=== PATIENT | female | born 1940 ===

== ENCOUNTER 2017-07-25 08:24 | Inpatient (IN) | payer MEDICARE, MEDICAID ==
[2017-07-25 08:41] VITALS: BMI 28.5
--- NOTE | 2017-07-25 09:33 | ED PDOC ---
Arrival/HPI - General Chief Complaint: Abdominal Pain Time Seen by Provider: 07/25/17 08:40 Historian: Patient - History of Present Illness Narrative History of Present Illness (Text): 07/25/17 08:40 A 77 year old female, whose past medical history includes triple bypass surgery (10 years ago), hypertension, and hyperlipedemia, presents to the emergency department for abdominal pain, which began around 03:00 this morning. The patient states the pain is in her epigastric region and is intermittent. The patient admits to eating pizza last night and thinks that may be the cause of her pain. She also notes that she had 3 normal bowel movements since last night. She states she has taken nexium in the past, but does not take it everyday. The patient denies any fever, nausea, vomiting, diarrhea, or any other complaints at this time. Time/Duration: 24 hours (03:00) Symptom Onset: Sudden Symptom Course: Intermittent Quality: Cramping Activities at Onset: Eating Context: Home Past Medical History - Provider Review Nursing Documentation Reviewed: Yes - Infectious Disease Hx of Infectious Diseases: None - Cardiac Hx Cardiac Disorders: Yes Hx Hypertension: Yes Other/Comment: triple bypass - Pulmonary Hx Respiratory Disorders: No - Neurological Hx Neurological Disorder: Yes Hx Dizziness: Yes - HEENT Hx HEENT Disorder: Yes Other/Comment: b/l eye sx - Renal Hx Renal Disorder: No - Endocrine/Metabolic Hx Endocrine Disorders: No - Hematological/Oncological Hx Blood Disorders: No - Integumentary Hx Dermatological Disorder: No - Musculoskeletal/Rheumatological Hx Musculoskeletal Disorders: No - Gastrointestinal Hx Gastrointestinal Disorders: No - Genitourinary/Gynecological Hx Genitourinary Disorders: No - Psychiatric Hx Psychophysiologic Disorder: Yes Hx Anxiety: Yes Hx Panic Disorder: Yes ("once in a while") Hx Substance Use: No - Surgical History Other/Comment: triple bypass. b/l carpal tunnel sx - Anesthesia Hx Anesthesia: Yes Hx Anesthesia Reactions: No Family/Social History - Physician Review Nursing Documentation Reviewed: Yes Family/Social History: No Known Family HX Smoking Status: Never Smoked Hx Alcohol Use: No Hx Substance Use: No Allergies/Home Meds Allergies/Adverse Reactions: Allergies amlodipine [From Norvasc] Adverse Reaction (Verified 07/25/17 08:46) NAUSEA Home Medications: Home Meds Medication Instructions Recorded Confirmed ALPRAZolam [Xanax] 1 tab PO BID PRN 07/25/17 07/25/17 Aspirin [Aspirin EC] 1 tab PO DAILY 07/25/17 07/25/17 Atorvastatin [Lipitor] 40 mg PO DAILY 07/25/17 07/25/17 Carvedilol [Coreg] 25 mg PO DAILY 07/25/17 07/25/17 Esomeprazole Magnesium [Nexium] 1 tab PO DAILY 07/25/17 07/25/17 Fenofibrate Nanocrystallized 1 tab PO DAILY 07/25/17 07/25/17 [Fenofibrate] Meclizine [Meclizine*] 1 tab PO BID PRN 07/25/17 07/25/17 Valsartan/Hydrochlorothiazide 1 tab PO DAILY 07/25/17 07/25/17 [Valsartan-Hctz 320-12.5 mg Tab] diltiaZEM [Cardizem] 240 mg PO DAILY 07/25/17 07/25/17 Review of Systems - Physician Review All systems were reviewed & negative as marked: Yes - Review of Systems Constitutional: absent: Fevers Gastrointestinal: Abdominal Pain. absent: Diarrhea, Nausea, Vomiting Physical Exam Vital Signs Reviewed: Yes Vital Signs Temp Pulse Resp BP Pulse Ox 07/25/17 08:39 97.6 F 54 L 17 157/77 H 100 Temperature: Afebrile Blood Pressure: Hypertensive Pulse: Bradycardic Respiratory Rate: Normal Appearance: Positive for: Well-Appearing, Non-Toxic, Comfortable Pain Distress: None Mental Status: Positive for: Alert and Oriented X 3 - Systems Exam Head: Present: Atraumatic, Normocephalic Pupils: Present: PERRL Extroacular Muscles: Present: EOMI Conjunctiva: Present: Normal Ears: Present: Normal, NORMAL TM, Erythema, Normal Canal, TM Bulging, Fluid, TM Perf, Other Mouth: Present: Moist Mucous Membranes Neck: Present: Normal Range of Motion Respiratory/Chest: Present: Clear to Auscultation, Good Air Exchange. No: Respiratory Distress, Accessory Muscle Use Cardiovascular: Present: Regular Rate and Rhythm, Normal S1, S2. No: Murmurs Abdomen: Present: Tenderness (mild epigastric tenderness), Normal Bowel Sounds. No: Distention, Peritoneal Signs Back: Present: Normal Inspection Upper Extremity: Present: Normal Inspection. No: Cyanosis, Edema Lower Extremity: Present: Normal Inspection. No: Edema Neurological: Present: GCS=15, CN II-XII Intact, Speech Normal Skin: Present: Warm, Dry, Normal Color. No: Rashes Psychiatric: Present: Alert, Oriented x 3, Normal Insight, Normal Concentration Medical Decision Making ED Course and Treatment: 07/25/17 09:00 Impression: A 77 year old female with abdominal pain. Differential Diagnosis included but are not limited to: pancreatitis vs. gastritis vs. reflux Plan: -- Labs -- Pepcid -- Reassess and disposition Progress Notes: Abdominal US Accession No. : [id number] Patient Name / ID : VLAD ANDRADE / [id number]: Abdominal pain. Rule out cholecystitis. . IMPRESSION: Limited study due to body habitus and bowel gas. Echogenic focus within the gallbladder lumen which could represent echogenic sludge versus non calcified intraluminal gallstone. There are bilateral renal cysts as detailed above. CT abdomen and pelvis with IV contrast Accession No. : [id number] Patient Name / ID : VLAD ANDRADE / [id number] Exam Date : 07/25/2017 13:49:59 ( Approved ) Study Comment : Sex / Age : F / 77Y PROCEDURE: CT scan abdomen and pelvis dated 07/25/2017 HISTORY: Abdominal pain. Rule out cholecystitis IMPRESSION: Distended gallbladder. No obvious intraluminal gallbladder calculi seen however there does appear to be a vague density along the posterior margin of the gallbladder wall that could represent localize sludge. Clinical correlation recommended. Medium to large sized ventral wall hernia upper abdomen containing fat and a loop of small bowel however short segment of mid transverse colon cannot be completely excluded. There are several distended air-filled loops of small bowel present cm in greatest diameter. Possibility of a partial obstruction cannot be excluded. There is however stool and air seen throughout the large bowel. Multiple bilateral renal cysts. 07/25/17 15:[address] ordered to confirm cholecystitis. CT results noted above. Case discussed with the supervisor residential Shannon who evaluated the patient and discussed the case with Dr. Elias. IVF were given. IV antibiotics ordered by resident. Case discussed with Dr. Lancaster who will accept the patient to her service with Dr. Elias surgery on consult. - Lab Interpretations Lab Results: 07/25/17 09:00 07/25/17 10:15 Lab Results 07/25/17 10:15: Sodium 138, Potassium 3.6, Chloride 105, Carbon Dioxide 25, Anion Gap 12, BUN 18, Creatinine 1.0, Est GFR ( Amer) > 60, Est GFR (Non- Af Amer) 53, Random Glucose 128 H, Calcium 9.9, Total Bilirubin 1.7 H, AST 117 H , ALT 69 H, Alkaline Phosphatase 43, Total Protein 7.3, Albumin 4.0, Globulin 3.3, Albumin/Globulin Ratio 1.2, Lipase 492 H 07/25/17 09:00: WBC 7.0, RBC 3.90, Hgb 12.1, Hct 36.5, MCV 93.6, MCH 31.0, MCHC 33.2, RDW 12.9, Plt Count 168, MPV 11.5 H, Gran % 79.6 H, Lymph % (Auto) 13.8 L , [place] % (Auto) 4.1, Eos % (Auto) 2.4, Baso % (Auto) 0.1, Gran # 5.60, Lymph # 1.0 L, [place] # 0.3, Eos # 0.2, Baso # 0.01 I have reviewed the lab results: Yes Interpretation: Abnormal lab values (lipase and lfts elevated) - RAD Interpretation Radiology Orders: 07/25/17 10:34 ABDOMEN COMPLETE [US] Stat 07/25/17 12:53 ABD & PELVIS IV CONTRAST ONLY [CT] Stat 07/25/17 15:08 BILIARY SCAN (HIDA) [NM] Stat - Medication Orders Current Medication Orders: Sodium Chloride (Sodium Chloride 0.9%) 1,000 mls @ 100 mls/hr IV .Q10H SIVA Metronidazole (Flagyl) 500 mg in 100 mls @ 100 mls/hr IVPB Q8 SIVA PRN Reason: Protocol Ceftriaxone Sodium (Rocephin 1 Gram Ivpb) 1 gm in 100 mls @ 100 mls/hr IVPB DAILY SIVA PRN Reason: Protocol Morphine Sulfate (Morphine) 4 mg IVP Q4H PRN PRN Reason: Pain, moderate (4-7) Ondansetron HCl (Zofran Inj) 4 mg IVP Q4H PRN PRN Reason: Nausea/Vomiting Pantoprazole Sodium (Protonix Inj) 40 mg IVP DAILY [facility] Discontinued Medications Famotidine (Pepcid) 20 mg IVP STAT STA Stop: 07/25/17 08:47 Last Admin: 07/25/17 09:17 Dose: 20 mg IVP Administration Document 07/25/17 09:17 MR (Rec: 07/25/17 09:17 [id number]) Charges for Administration # of IVP Administrations 1 Morphine Sulfate (Morphine) 4 mg IVP STAT STA Stop: 07/25/17 10:27 Last Admin: 07/25/17 10:43 Dose: 4 mg MAR Pain Assessment Document 07/25/17 10:43 MR (Rec: 07/25/17 10:44 MR [id number]) Pain Reassessment Is this a pain reassessment? Yes Sleep Is patient sleeping during reassessment? No Presence of Pain Presence of Pain Yes Pain Scale Used Pain Scale Used Numeric Location Left, Right or Bilateral Left Upper or Lower Upper Pain Location Body Site Abdomen Description Description Constant Intensity of Pain at present 8 Pain Behavior Restlessness Facial Grimacing Alleviating Factors/Management Medication Techniques Alleviating Factors Medication IVP Administration Document 07/25/17 10:43 MR (Rec: 07/25/17 10:44 MR [id number]) Charges for Administration # of IVP Administrations 1 - Scribe Statement The provider has reviewed the documentation as recorded by the Monster Morton Provider Scribe Attestation: All medical record entries made by the Scribe were at my direction and personally dictated by me. I have reviewed the chart and agree that the record accurately reflects my personal performance of the history, physical exam, medical decision making, and the department course for this patient. I have also personally directed, reviewed, and agree with the discharge instructions and disposition. Disposition/Present on Arrival - Present on Arrival Any Indicators Present on Arrival: No History of DVT/PE: No History of Uncontrolled Diabetes: No Urinary Catheter: No History of Decub. Ulcer: No History Surgical Site Infection Following: None - Disposition Have Diagnosis and Disposition been Completed?: Yes Diagnosis: Cholecystitis, Pancreatitis Disposition Time: 15:32 Patient Plan: Admission Condition: FAIR Referrals: Nikki Massey MD [Primary Care Provider] - Follow up with primary Forms: [employer] (Turkmen)
[2017-07-25 09:41] LABS: BASO # 0.01 K/mm3 (0.0-2.0); BASO % 0.1 % (0.0-3.0); EOS # 0.2 (0.0-0.7); EOS % 2.4 % (1.5-5.0); GRAN # 5.6 (1.4-6.5); GRAN % 79.6 % (50.0-68.0); HEMATOCRIT 36.5 % (36.0-48.0); LYMPH % 13.8 % (22.0-35.0); MEAN CELL VOLUME 93.6 fl (80.0-105.0); MEAN CORPUSCULAR HGB CONC 33.2 g/dl (31.0-37.0); MEAN PLATELET VOLUME 11.5 fl (7.0-11.0); MONO # 0.3 (0.1-0.6); MONO % 4.1 % (1.0-6.0); RED CELL DISTRIBUTION WIDTH 12.9 % (11.5-14.5)
[2017-07-25] MEDS ORDERED: Morphine 4 mg/ml ISec IVP STA (10:26)
[2017-07-25 10:31] LABS: ALB/GLOB RATIO 1.2 (1.1-1.8); ALKALINE PHOSPHATASE 43 U/L (38-126); ALT/SGPT 69 U/L (7-56); AST/SGOT 117 U/L (14-36); BILIRUBIN,TOTAL 1.7 mg/dL (0.2-1.3); BLOOD UREA NITROGEN 18 mg/dL (7-21); CALCIUM 9.9 mg/dL (8.4-10.5); CARBON DIOXIDE 25 mmol/L (21-33); CHLORIDE 105 mmol/L (98-107); GFR AFRICAN-AMERICAN > 60; GLUCOSE,RANDOM 128 mg/dL (70-110); LIPASE 492 U/L (23-300); POTASSIUM 3.6 mmol/L (3.6-5.0); SODIUM 138 mmol/L (132-148); TOTAL PROTEIN 7.3 g/dL (5.8-8.3)
[2017-07-25] MEDS ORDERED: Iohexol 240 (50 ml) ONE (10:34)
--- NOTE | 2017-07-25 12:45 | US ---
HISTORY: Abdominal pain. Rule out cholecystitis. . COMPARISON: None. TECHNIQUE: Sonographic evaluation of the abdomen. FINDINGS: LIVER: Liver exhibits normal size measuring approximately 15.3 cm in CC dimension. Liver demonstrates smooth contour though increased echotexture consistent with fatty infiltration however other infiltrative hepatocellular disease process not excluded. . No obvious hepatic masses or collections. GALLBLADDER: Non shadowing echogenic focus within the dependent portion of the gallbladder could represent echogenic sludge or possibly noncalcified gallstone COMMON BILE DUCT: Measures 3.9 mm. No stones. No dilatation. PANCREAS: Pancreas poorly seen due to body habitus and bowel gas RIGHT KIDNEY: Measures approximately 10.4 x 5.1 x 5.3cm. Normal echogenicity. No calculus, mass, or hydronephrosis. . There are small cysts seen in the midpole right kidney measuring 1.7 x 2.2 x 1.7 cm and another in the lower pole measuring 2.0 x 1.5 x 1.8 cm. LEFT KIDNEY: Measures approximately 10.3 x 4.7 x 5.2cm. Normal echogenicity. No calculus, mass, or hydronephrosis. There are least 4 small cysts present 1 in the upper pole measuring 1.1 cm greatest dimension another in mid/ lower pole region measuring 1.4 cm in greatest dimension another in the midpole measuring 1.6 cm in greatest dimension and the last in the lower pole measuring approximately 1.2 cm SPLEEN: Normal in size (measuring approximately 10.3 x 3.7 x 3.9) and contour. No mass. AORTA: Not visualized due to body habitus and bowel gas IVC: Not visualized due to body habitus and bowel gas OTHER FINDINGS: None. IMPRESSION: Limited study due to body habitus and bowel gas. Echogenic focus within the gallbladder lumen which could represent echogenic sludge versus non calcified intraluminal gallstone. There are bilateral renal cysts as detailed above.
[2017-07-25] MEDS ORDERED: Iohexol 350 MG/100 ML VIAL ONE (13:25)
--- NOTE | 2017-07-25 14:37 | CT ---
PROCEDURE: CT scan abdomen and pelvis dated 07/25/2017 HISTORY: Abdominal pain. Rule out cholecystitis COMPARISON: Correlation made with abdominal ultrasound obtained earlier same day TECHNIQUE: Contiguous axial images of the abdomen and pelvis. Oral contrast was administered. No IV contrast given. Coronal and Sagittal reformats generated. Radiation dose: Total exam DLP = 616.66 mGy-cm. This CT exam was performed using one or more of the following dose reduction techniques: Automated exposure control, adjustment of the mA and/or kV according to patient size, and/or use of iterative reconstruction technique. FINDINGS: LOWER THORAX: Minor bibasilar atelectasis left greater than right. No evidence of basilar pneumothorax. Moderate size hiatal hernia with wall thickening of the distal esophagus likely due to protrusion of gastric mucosa. Esophagitis or other intrinsic/invasive wall lesion cannot be excluded. LIVER: Unremarkable. No gross lesion or ductal dilatation. GALLBLADDER AND BILE DUCTS: Gallbladder is moderately distended No evidence of intraluminal gallbladder calcification. There is an area of increased density along the posterior wall of the gallbladder that could represent localized hyperdense sludge PANCREAS: The pancreas appears slightly atrophic. No obvious pancreatic mass or collection. . SPLEEN: Spleen upper limits of normal in size measuring nearly 12 cm and at AP dimension. No splenic mass or collection ADRENALS: . No adrenal lesions seen. KIDNEYS AND URETERS: Kidneys demonstrate symmetric nephrograms. No evidence of nephrolithiasis or hydronephrosis. Multiple varying sized bilateral low-attenuation foci both kidneys consistent with renal cysts. BLADDER: Urinary bladder is physiologically distended. No evidence of intraluminal urinary bladder calculi. REPRODUCTIVE: Peripheral uterine calcifications likely vascular in origin. APPENDIX: The appendix is not seen with complete certainty however no obvious inflammatory changes at in the right lower quadrant of the abdomen. BOWEL: Evaluation of the bowel is limited due to the lack of oral contrast material. Stomach is incompletely distended which presumably accounts for thick-walled appearance. Visualized loops of small bowel exhibit normal contour and caliber. No evidence of acute mechanical small bowel obstruction. Stool and air seen throughout the colon. No obvious abnormal mural wall thickening. There is a fat containing medium to large sized ventral wall hernia mid upper abdomen that contains fat and a loop of bowel possibly either small bowel or segment of transverse colon however. There are multiple on mildly distended air-filled loops of small bowel also seen measuring up to 3.3 mm in diameter. Rule out partial on SBO. PERITONEUM: There is a mid upper abdomen medium/ large hiatal hernia bold containing fat and what appears to represent a loop of bowel (questionable loop of small bowel and/or smooth short segment of the transverse colon). . Small fat containing right inguinal hernia. LYMPH NODES: Unremarkable. No enlarged lymph nodes. VASCULATURE: Unremarkable. No aortic aneurysm. BONES: Multilevel degenerative spondylosis of the lower thoracic and lumbar spine. Chronic anterior wedge deformity of the anterior superior corner L1 segment. OTHER FINDINGS: None. IMPRESSION: Distended gallbladder. No obvious intraluminal gallbladder calculi seen however there does appear to be a vague density along the posterior margin of the gallbladder wall that could represent localize sludge. Clinical correlation recommended. Medium to large sized ventral wall hernia upper abdomen containing fat and a loop of small bowel however short segment of mid transverse colon cannot be completely excluded. There are several distended air-filled loops of small bowel present cm in greatest diameter. Possibility of a partial obstruction cannot be excluded. There is however stool and air seen throughout the large bowel. Multiple bilateral renal cysts.
--- NOTE | 2017-07-25 15:13 | CP.PCM.CON ---
History of Present Illness - History of Present Illness History of Present Illness: Surgery Consult note. Dr. Elias 77yo F with PMHx of HTN, Panic Attacks, and HLD here for evaluation of abdominal pain. Patient states that she woke up from sleep due to severe, sharp RUQ abdominal pain. Abdominal pain started at 3AM this morning, reports eating a slice of pizza about 2 hours prior. She denies any nausea, vomiting, or diarrhea. No fevers or chills. States that she has had normal bowel movements. Has been passing flatus, with last BM this morning, non bloody, non melanotic, no change in stool characteristics. Denies similar complaints in the past. No sick contacts. No CP/SOB. She does not want to have surgery. PMD: Dr. Nikki Massey PMHx: HTN, Panic disorder, HLD PSHx: Cataracts, CABG, Left carpal tunnel release Family Hx: Denies Social Hx: Denies tobacco, denies ETOH, denies illicit drugs. She is visiting her daughter for the holidays. She normally lives with her granddaughter in [facility] [facility]. Allergy: Amlodipine Review of Systems - Review of Systems All systems: reviewed and no additional remarkable complaints except - Constitutional Constitutional: absent: Anorexia, Chills, Fever, Headache - Cardiovascular Cardiovascular: absent: Chest Pain, Dyspnea - Respiratory Respiratory: absent: Cough, Dyspnea - Gastrointestinal Gastrointestinal: Abdominal Pain, Bloating. absent: Constipation, Diarrhea, Hematemesis, Hematochezia, Melena, Nausea, Vomiting - Genitourinary Genitourinary: absent: Dysuria - Neurological Neurological: absent: Headaches - Psychiatric Psychiatric: absent: Anxiety Past Patient History - Infectious Disease Hx of Infectious Diseases: None - Past Social History Smoking Status: Never Smoked - CARDIAC Hx Cardiac Disorders: Yes Hx Hypertension: Yes Other/Comment: triple bypass - PULMONARY Hx Respiratory Disorders: No - NEUROLOGICAL Hx Neurological Disorder: Yes Hx Dizziness: Yes - HEENT Hx HEENT Problems: Yes Other/Comment: b/l eye sx - RENAL Hx Chronic Kidney Disease: No - ENDOCRINE/METABOLIC Hx Endocrine Disorders: No - HEMATOLOGICAL/ONCOLOGICAL Hx Blood Disorders: No - INTEGUMENTARY Hx Dermatological Problems: No - MUSCULOSKELETAL/RHEUMATOLOGICAL Hx Musculoskeletal Disorders: No - GASTROINTESTINAL Hx Gastrointestinal Disorders: No - GENITOURINARY/GYNECOLOGICAL Hx Genitourinary Disorders: No - PSYCHIATRIC Hx Psychophysiologic Disorder: Yes Hx Anxiety: Yes Hx Panic Symptoms: Yes ("once in a while") Hx Substance Use: No - SURGICAL HISTORY Other/Comment: triple bypass. b/l carpal tunnel sx - ANESTHESIA Hx Anesthesia: Yes Hx Anesthesia Reactions: No Meds Allergies/Adverse Reactions: Allergies Allergy/AdvReac Type Severity Reaction Status Date / Time amlodipine [From [facility]] AdvReac NAUSEA Verified 07/25/17 08:46 - Medications Medications: Current Medications Sodium Chloride (Sodium Chloride 0.9%) 1,000 mls @ 100 mls/hr IV .Q10H SIVA Physical Exam - Constitutional Appears: Well, No Acute Distress - Head Exam Head Exam: ATRAUMATIC, NORMAL INSPECTION, NORMOCEPHALIC - Eye Exam Eye Exam: EOMI, Normal appearance - ENT Exam ENT Exam: Mucous Membranes Moist, Normal Exam - Respiratory Exam Respiratory Exam: NORMAL BREATHING PATTERN. absent: Accessory Muscle Use, Chest Wall Tenderness, Respiratory Distress - Cardiovascular Exam Cardiovascular Exam: RRR, +S1, +S2. absent: JVD - GI/Abdominal Exam GI & Abdominal Exam: Soft. absent: Distended, Firm, Guarding, Rebound, Rigid Additional comments: mild RUQ tenderness. No Lopez's sign. No Rebound tenderness, no guarding. No peritoneal signs. Soft, Non-distended. - Extremities Exam Extremities exam: Positive for: normal inspection. Negative for: calf tenderness - Neurological Exam Neurological exam: Alert, Oriented x3 - Psychiatric Exam Psychiatric exam: Normal Affect, Normal Mood - Skin Skin Exam: Dry, Intact, Normal Color, Warm Results - Vital Signs Recent Vital Signs: Last Vital Signs Temp 97.6 F 07/25/17 08:39 Pulse 54 L 07/25/17 08:39 Resp 17 07/25/17 08:39 BP 157/77 H 07/25/17 08:39 Pulse Ox 100 07/25/17 08:39 - Labs Result Diagrams: 07/25/17 09:00 07/25/17 10:15 Labs: Laboratory Results - last 24 hr 07/25/17 07/25/17 09:00 10:15 WBC 7.0 RBC 3.90 Hgb 12.1 Hct 36.5 MCV 93.6 MCH 31.0 MCHC 33.2 RDW 12.9 Plt Count 168 MPV 11.5 H Gran % 79.6 H Lymph % (Auto) 13.8 L [place] % (Auto) 4.1 Eos % (Auto) 2.4 Baso % (Auto) 0.1 Gran # 5.60 Lymph # 1.0 L [place] # 0.3 Eos # 0.2 Baso # 0.01 Sodium 138 Potassium 3.6 Chloride 105 Carbon Dioxide 25 Anion Gap 12 BUN 18 Creatinine 1.0 Est GFR ( Amer) > 60 Est GFR (Non-Af Amer) 53 Random Glucose 128 H Calcium 9.9 Total Bilirubin 1.7 H AST 117 H ALT 69 H Alkaline Phosphatase 43 Total Protein 7.3 Albumin 4.0 Globulin 3.3 Albumin/Globulin Ratio 1.2 Lipase 492 H Assessment & Plan - Assessment and Plan (Free Text) Assessment: 77yo F with biliary colic vs. cholecystitis - No leukocytosis, afebrile - VSS - Mildly elevated transaminases - f/u AM labs - IVF - IV abx - Pain management - Clears - Zofran prn, PPI - f/u HIDA, pending Further recs as per Dr. Curt Ortega PGY1 surgery pager: [phone]
[2017-07-25] MEDS ORDERED: Morphine 4 mg/ml ISec IVP PRN (15:31)
[2017-07-25] MEDS: Sodium Chloride 0.9% 1,000 ML IV SCH (16:05)
[2017-07-25] MEDS: cefTRIAXone 1 gm 1 GM/100 ML BAG IVPB SCH (16:06)
[2017-07-25] MEDS ORDERED: Pneumococcal 23-Valent Vaccine IM ONE (17:14)
[2017-07-25] MEDS ORDERED: Influenza Vaccine 60 mcg/0.5 mL SYR (4YR UP) IM ONE (17:14)
[2017-07-25] MEDS: diltiaZEM 240 mg/24 Hours CD Cap PO SCH (22:14)
[2017-07-25] MEDS: metroNIDAZOLE IV 500 mg/100 ml 500 MG/100 ML BAG IVPB SCH (22:16)
--- NOTE | 2017-07-25 22:44 | HP ---
HISTORY OF PRESENT ILLNESS: The patient is a 77-year-old, who came to emergency room because of abdominal pain. The patient states that she woke up this morning with severe abdominal pain more so on the right upper quadrant area. Pain was so severe that it woke her up around 3 o'clock this morning. Did not have nausea or vomiting. She admit eating slice earlier that night. No history of fever or chills. Does have nausea. No rectal bleeding. No hemoptysis. No hematemesis. No fever or chills. PAST MEDICAL HISTORY: Significant for hypertension, hyperlipidemia and panic attack. SURGICAL HISTORY: Significant for open heart surgery many, many years ago, left carpal tunnel syndrome and cataract surgery. SOCIAL HISTORY: Denies smoking, drinking or alcohol use. ALLERGIES: SHE IS ALLERGIC TO AMLODIPINE. MEDICATIONS AT HOME: She is on diltiazem 240 mg daily, valsartan 320 mg daily, meclizine one tablet twice a day, fenofibrate one tablet daily, Protonix 20 mg daily, Coreg 25 mg daily, Lipitor 20 mg daily, aspirin 81 mg, Xanax 0.25 mg b.i.d. p.r.n. REVIEW OF SYSTEMS: Right upper quadrant pain. PHYSICAL EXAMINATION: GENERAL: Awake, alert, oriented, communicative. VITAL SIGNS: She is afebrile, pulse 72, respirations 18 and blood pressure 147/63. LUNGS: Bilateral fair airflow. No rhonchi or crackle. HEART: S1 and S2 audible. ABDOMEN: Soft, but has right upper quadrant palpable discomfort. NEUROLOGIC: The patient is awake and alert, oriented and communicate. LABORATORY EXAM: WBC 7.0, hemoglobin 12, hematocrit 36 and platelets 168. Chemistry; sodium 138, potassium 3.6, chloride 105, CO2 of 25, BUN 18, creatinine 1.0, blood sugar 128, total bilirubin 1.7, AST 117, ALT 69, lipase 492. She has CT scan of the abdomen and pelvis that shows distended gallbladder. No obvious intraluminal gallbladder calculi; however, there is vague density along the posterior margin of the gallbladder wall probably sludge. Abdominal ultrasound is inconclusive. ASSESSMENT: 1. Acute cholecystitis. 2. Coronary artery disease. 3. Hypertension. 4. Hyperlipidemia. PLAN: We will keep patient n.p.o. HIDA scan has been requested. We will continue on IV fluid. She is on Rocephin and metronidazole. I will continue that. Surgical consult with Dr. Elias has been requested. I will give her Zofran. I will follow this patient in the morning. Shaq Lancaster MD
[2017-07-26] MEDS: metroNIDAZOLE IV 500 mg/100 ml 500 MG/100 ML BAG IVPB SCH ×3 (06:14→21:52)
[2017-07-26 06:54] LABS: EOS # 0.1 (0.0-0.7); EOS % 0.7 % (1.5-5.0); GRAN # 7.42 (1.4-6.5); GRAN % 85.8 % (50.0-68.0); HEMATOCRIT 30.8 % (36.0-48.0); LYMPH # 0.6 (1.2-3.4); LYMPH % 7.2 % (22.0-35.0); MEAN CELL VOLUME 92.2 fl (80.0-105.0); MEAN CORPUSCULAR HEMOGLOBIN 30.5 pg (25.0-35.0); MEAN CORPUSCULAR HGB CONC 33.1 g/dl (31.0-37.0); MEAN PLATELET VOLUME 10.6 fl (7.0-11.0); MONO # 0.5 (0.1-0.6); MONO % 6.3 % (1.0-6.0); RED CELL DISTRIBUTION WIDTH 13.3 % (11.5-14.5); WHITE BLOOD COUNT 8.6 10^3/ul (4.5-11.0)
[2017-07-26 07:10] LABS: ALB/GLOB RATIO 1.1 (1.1-1.8); BILIRUBIN,DIRECT 2.9 mg/dL (0.0-0.4); BILIRUBIN,TOTAL 3.3 mg/dL (0.2-1.3); CALCIUM 9.2 mg/dL (8.4-10.5); MAGNESIUM 1.6 mg/dL (1.7-2.2); PHOSPHOROUS 2.8 mg/dL (2.5-4.5); POTASSIUM 3.5 mmol/L (3.6-5.0); TOTAL PROTEIN 6.5 g/dL (5.8-8.3)
[2017-07-26] MEDS ORDERED: Magnesium Sulfate 1 gm in D5W 1 GM/100 ML BAG IVPB ONE (09:35)
[2017-07-26] MEDS ORDERED: Potassium Chloride 40 mEq/30 ml LIQ UD PO ONE (10:12)
[2017-07-26] MEDS: cefTRIAXone 1 gm 1 GM/100 ML BAG IVPB SCH (10:13)
--- NOTE | 2017-07-26 10:27 | CP.PCM.PN ---
Subjective - Date & Time of Evaluation Date of Evaluation: 07/26/17 Time of Evaluation: 10:25 - Subjective Subjective: Surgery PT s&e. NAEON. Pain controlled. Denies F/C/N/V/D/CP/SOB. OOB. + void. Objective - Vital Signs/Intake and Output Vital Signs (last 24 hours): Temp Pulse Resp BP Pulse Ox 98.7 F 80 20 127/60 95 07/26/17 08:27 07/26/17 10:13 07/26/17 08:27 07/26/17 10:13 07/26/17 08:27 Intake and Output: 07/26/17 07/26/17 06:59 18:59 Intake Total 120 Balance 120 - Medications Medications: Current Medications Alprazolam (Xanax) 1 mg PO BID PRN; Protocol PRN Reason: Anxiety Stop: 08/01/17 19:03 Carvedilol (Coreg) 25 mg PO BID [facility] Last Admin: 07/26/17 10:13 Dose: 25 mg Diltiazem HCl (Cardizem Cd) 240 mg PO HS [facility] Last Admin: 07/25/17 22:14 Dose: 240 mg Sodium Chloride (Sodium Chloride 0.9%) 1,000 mls @ 100 mls/hr IV .Q10H [facility] Last Admin: 07/25/17 16:05 Dose: 100 mls/hr Metronidazole (Flagyl) 500 mg in 100 mls @ 100 mls/hr IVPB Q8 [facility] PRN Reason: Protocol Last Admin: 07/26/17 06:14 Dose: 100 mls/hr Ceftriaxone Sodium (Rocephin 1 Gram Ivpb) 1 gm in 100 mls @ 100 mls/hr IVPB DAILY [facility] PRN Reason: Protocol Last Admin: 07/26/17 10:13 Dose: 100 mls/hr Magnesium Sulfate/Dextrose (Magnesium Sulfate 1 Gm/100 Ml D5w) 1 gm in 100 mls @ 100 mls/hr IVPB ONCE ONE Stop: 07/26/17 10:34 Last Admin: 07/26/17 10:20 Dose: 100 mls/hr Morphine Sulfate (Morphine) 4 mg IVP Q4H PRN PRN Reason: Pain, moderate (4-7) Ondansetron HCl (Zofran Inj) 4 mg IVP Q4H PRN PRN Reason: Nausea/Vomiting Pantoprazole Sodium (Protonix Inj) 40 mg IVP DAILY [facility] Last Admin: 07/26/17 10:13 Dose: 40 mg - Labs Labs: 07/26/17 06:30 07/26/17 06:30 - Constitutional Appears: No Acute Distress - Head Exam Head Exam: ATRAUMATIC, NORMAL INSPECTION, NORMOCEPHALIC - Eye Exam Eye Exam: EOMI, Normal appearance, PERRL Pupil Exam: NORMAL ACCOMODATION, PERRL - ENT Exam ENT Exam: Mucous Membranes Moist, Normal Exam - Neck Exam Neck Exam: Full ROM, Normal Inspection. absent: Lymphadenopathy - Respiratory Exam Respiratory Exam: Clear to Ausculation Bilateral, NORMAL BREATHING PATTERN - Cardiovascular Exam Cardiovascular Exam: REGULAR RHYTHM, +S1, +S2. absent: Murmur - GI/Abdominal Exam GI & Abdominal Exam: Soft, Normal Bowel Sounds. absent: Distended, Firm, Guarding, Rigid, Tenderness - Extremities Exam Extremities Exam: Full ROM, Normal Capillary Refill, Normal Inspection. absent : Joint Swelling, Pedal Edema - Back Exam Back Exam: NORMAL INSPECTION - Neurological Exam Neurological Exam: Alert, Awake, CN II-XII Intact, Normal Gait, Oriented x3 - Psychiatric Exam Psychiatric exam: Normal Affect, Normal Mood - Skin Skin Exam: Dry, Intact, Normal Color, Warm Assessment and Plan - Assessment and Plan (Free Text) Assessment: 77yo F with biliary colic vs. cholecystitis - No leukocytosis, afebrile - VSS -Tbili elevated. 3.3 <-1.7 - IVF - IV abx - Pain management - Zofran prn, PPI - f/u HIDA, pending -GI consult for elevated LFT, abd pain. Further recs as per Dr. Elias
[2017-07-26 15:36] LABS: INR 1.11 (0.93-1.08); PARTIAL THROMBOPLASTIN TIME 24.8 Seconds (25.1-36.5)
--- NOTE | 2017-07-26 19:02 | PN ---
SUBJECTIVE: The patient is a 77-year-old who is visiting her daughter from [place], got sick, came to ER because of abdominal pain and nausea, has cholecystitis, waiting MRCP of the liver and gallbladder. PHYSICAL EXAMINATION: GENERAL: She looks comfortable, sitting in the chair. VITAL SIGNS: She is afebrile. Pulse 60, respirations 20, blood pressure 140/93. LUNGS: Bilateral, fair airflow. No rhonchi or crackle. HEART: S1 and S2 audible. ABDOMEN: Soft, slight epigastric and right upper quadrant discomfort. No rebound. No guarding. NEUROLOGIC: She is awake, alert, oriented and communicative. LABORATORY DATA: WBC is 8.6, hemoglobin 10.2, hematocrit 30.8 and platelets 130. Chemistry: Sodium 138, potassium 3.5, chloride 105, CO2 of 25, BUN 19, creatinine 1.1, blood sugar 111, magnesium 1.6, total bilirubin 3.3, AST 270, ALT 176. She has HIDA scan done, that results are pending. ASSESSMENT: 1. Acute cholecystitis. 2. Obstructive jaundice. 3. Coronary artery disease, status post open heart surgery. 4. Hypertension. 5. Hyperlipidemia. PLAN: Currently, the patient is on Coreg and diltiazem. She has been started on metronidazole and Rocephin. Her magnesium has been supplemented. We will follow up her CBC and CMP in a.m., awaiting MRCP result and awaiting HIDA scan result. We will follow up this patient in a.m. Eventually, she is going to need cholecystectomy. Shaq Lancaster MD
[2017-07-26] MEDS: diltiaZEM 240 mg/24 Hours CD Cap PO SCH (21:52)
--- NOTE | 2017-07-26 23:07 | CON ---
DATE: 07/26/2017 HISTORY OF PRESENT ILLNESS: This patient was seen and evaluated earlier. 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 The patient initially was intermittent colic pain, becoming persistent. Similar history of previous pain. No vomiting. The patient was found to have elevated liver enzymes. The patient had an ultrasound scan done, which showed no gallstones, CBD was normal. The CAT scan showed some dilated loops of a small bowel. The patient has been started empirically on antibiotics and requested for HIDA scan and also MRCP. The patient is claustrophobic, refuses to have the MRCP. The patient feels slightly better on exam. PAST MEDICAL HISTORY: As above. History of anxiety. PAST SURGICAL HISTORY: Significant for CABG, left carpal tunnels release, history of cataract surgery. FAMILY HISTORY: Noncontributory. SOCIAL HISTORY: Denies smoking, alcohol. ALLERGIES: SHE IS ALLERGIC TO AMLODIPINE. REVIEW OF SYSTEMS: Positive as above. Other systems reviewed. PHYSICAL EXAMINATION: GENERAL: The patient lying on the bed, not in acute distress. VITAL SIGNS: Temperature is 98.5, pulse is 60, blood pressure 140/93, respirations 20, O2 saturations 95%. HEENT: Atraumatic, anicteric. NECK: Supple. HEART: S1, S2 heard. LUNGS: Bilateral air entry present. ABDOMEN: Soft. There is mild tenderness present at the left upper quadrant area and also periumbilical area. EXTREMITIES: No edema. No cyanosis. NEUROLOGIC: Alert, oriented. Moves all the extremities. LABORATORY DATA: Hemoglobin 10.2, hematocrit 30.8, WBC 8.6, platelets 130. INR is 1.11 and PTT is 24.8. Review of the labs showed potassium 3.5; glucose 111; magnesium 1.6, low; total bilirubin 3.3, it was 1.7. AST is 270, ALT is 176, alkaline phosphatase 26. IMPRESSION: This 77-year-old patient presented with acute onset of abdominal pain, mainly in the epigastric. The patient does have some dilated loops of the small bowel, but the liver function test shows increased total bilirubin and also indirect bilirubin and has both transaminases elevated; however, the alkaline phosphatase is normal. Common bile duct is normal in size. Ultrasound showed no gallstones. The HIDA scan done was reviewed in 4 hours that appears to be no uptake, suggestive of possible cholecystitis. Official report is still pending. The patient does have dilated loops of the small bowel; however, there is no complete obstruction. The patient did move her bowels twice. Review of the CT also showed some mild thickening on the ascending colon area, focal thickening. The patient never had a colonoscopy done, never had an endoscopy also done. RECOMMENDATIONS: I would recommend: 1. Followup of the LFTs. 2. Hepatitis profile. 3. Continue the empiric antibiotic therapy. 4. surgical followup. 5. The patient would benefit from the MRI with MRCP. I did explain to the patient at length the importance and the patient was ordered for 1 mg of Ativan to be given IV before the MRCP. If the patient is not able to tolerate, she may need an US to further evaluate, but the concern is non-visualized gallbladder with worsening of the LFTs. It is probably acute cholecystitis to be considered in view of the acute onset of the symptoms, but ultrasound did not show any gallstones, which is rather concerning. I would continue the patient on a clear liquid diet. We will continue closely followup her care and suggest further management based on the clinical course. I did discuss with the patient's daughter at length and also with the patient, all the questions answered. Thank you very much Dr. Lancaster for allowing us to participate in the care of the patient. Madeline Peralta MD
[2017-07-27] MEDS: metroNIDAZOLE IV 500 mg/100 ml 500 MG/100 ML BAG IVPB SCH ×3 (05:34→21:19)
[2017-07-27 07:21] LABS: ALB/GLOB RATIO 1.1 (1.1-1.8); ALKALINE PHOSPHATASE 52 U/L (38-126); ALT/SGPT 212 U/L (7-56); AST/SGOT 301 U/L (14-36); BILIRUBIN,TOTAL 3.2 mg/dL (0.2-1.3); BLOOD UREA NITROGEN 15 mg/dL (7-21); CARBON DIOXIDE 22 mmol/L (21-33); CHLORIDE 109 mmol/L (98-107); GFR AFRICAN-AMERICAN > 60; GLUCOSE,RANDOM 116 mg/dL (70-110); POTASSIUM 3.7 mmol/L (3.6-5.0); SODIUM 140 mmol/L (132-148); TOTAL PROTEIN 6.6 g/dL (5.8-8.3)
[2017-07-27 07:39] LABS: BASO # 0.01 K/mm3 (0.0-2.0); BASO % 0.2 % (0.0-3.0); EOS # 0.1 (0.0-0.7); EOS % 2.4 % (1.5-5.0); GRAN # 4.24 (1.4-6.5); GRAN % 77.9 % (50.0-68.0); HEMATOCRIT 30.1 % (36.0-48.0); LYMPH # 0.7 (1.2-3.4); LYMPH % 12.1 % (22.0-35.0); MEAN CELL VOLUME 93.2 fl (80.0-105.0); MEAN CORPUSCULAR HEMOGLOBIN 30.7 pg (25.0-35.0); MEAN CORPUSCULAR HGB CONC 32.9 g/dl (31.0-37.0); MEAN PLATELET VOLUME 11.1 fl (7.0-11.0); MONO # 0.4 (0.1-0.6); MONO % 7.4 % (1.0-6.0); RED CELL DISTRIBUTION WIDTH 13.3 % (11.5-14.5); WHITE BLOOD COUNT 5.4 10^3/ul (4.5-11.0)
--- NOTE | 2017-07-27 07:42 | CP.PCM.PN ---
Subjective - Date & Time of Evaluation Date of Evaluation: 07/27/17 Time of Evaluation: 07:39 - Subjective Subjective: General Surgery - Dr Elias Pt S&E. WENDIE. Pt with mild RUQ abdominal pain, improved this morning. She is tolerating clear liquid diet. No N/V, F/C, SOb/Cp. Will go for MRI today. Objective - Vital Signs/Intake and Output Vital Signs (last 24 hours): Temp Pulse Resp BP Pulse Ox 98.5 F 64 20 140/79 95 07/26/17 16:09 07/26/17 21:52 07/26/17 16:09 07/26/17 21:52 07/26/17 16:09 Intake and Output: 07/27/17 07/27/17 06:59 18:59 Intake Total 1420 Balance 1420 - Medications Medications: Current Medications Alprazolam (Xanax) 1 mg PO BID PRN; Protocol PRN Reason: Anxiety Stop: 08/01/17 19:03 Last Admin: 07/27/17 06:04 Dose: 1 mg Carvedilol (Coreg) 25 mg PO BID [facility] Last Admin: 07/26/17 18:14 Dose: 25 mg Diltiazem HCl (Cardizem Cd) 240 mg PO HS [facility] Last Admin: 07/26/17 21:52 Dose: 240 mg Sodium Chloride (Sodium Chloride 0.9%) 1,000 mls @ 100 mls/hr IV .Q10H [facility] Last Admin: 07/25/17 16:05 Dose: 100 mls/hr Metronidazole (Flagyl) 500 mg in 100 mls @ 100 mls/hr IVPB Q8 [facility] PRN Reason: Protocol Last Admin: 07/27/17 05:34 Dose: 100 mls/hr Ceftriaxone Sodium (Rocephin 1 Gram Ivpb) 1 gm in 100 mls @ 100 mls/hr IVPB DAILY [facility] PRN Reason: Protocol Last Admin: 07/26/17 10:13 Dose: 100 mls/hr Lorazepam (Ativan) 1 mg IVP ONCE ONE PRN Reason: Protocol Stop: 07/27/17 08:01 Morphine Sulfate (Morphine) 4 mg IVP Q4H PRN PRN Reason: Pain, moderate (4-7) Ondansetron HCl (Zofran Inj) 4 mg IVP Q4H PRN PRN Reason: Nausea/Vomiting Pantoprazole Sodium (Protonix Inj) 40 mg IVP DAILY [facility] Last Admin: 07/26/17 10:13 Dose: 40 mg - Labs Labs: 07/27/17 06:00 PT 12.1 SECONDS (9.4-12.5) 07/26/17 15:00 INR 1.11 (0.93-1.08) H 07/26/17 15:00 APTT 24.8 Seconds (25.1-36.5) L 07/26/17 15:00 - Constitutional Appears: No Acute Distress - Head Exam Head Exam: ATRAUMATIC, NORMAL INSPECTION, NORMOCEPHALIC - Eye Exam Eye Exam: Normal appearance - Respiratory Exam Respiratory Exam: NORMAL BREATHING PATTERN. absent: Respiratory Distress - GI/Abdominal Exam GI & Abdominal Exam: Soft, Tenderness (mild ttp RUQ, EPigastric hernia). absent : Distended, Firm, Guarding, Rigid, Rebound - Neurological Exam Neurological Exam: Alert, Oriented x3 - Psychiatric Exam Psychiatric exam: Normal Affect, Normal Mood - Skin Skin Exam: Dry, Intact Assessment and Plan - Assessment and Plan (Free Text) Assessment: 77 F w/ biliary colic, elevated LFTs -MRCP Today -F/U LFTs -Continue IV ABx, IVF, Pain control prn -OR Saturday for Lap [place] pending remainder of work-up -Will need Cardiac eval. prior to OR DW Dr. Curt Ma PGY3
[2017-07-27] MEDS: cefTRIAXone 1 gm 1 GM/100 ML BAG IVPB SCH (09:44)
--- NOTE | 2017-07-27 10:14 | NM ---
PROCEDURE: Nuclear Medicine Hepatobiliary Scan HISTORY: RUQ abd pain COMPARISON: None available. TECHNIQUE: 5.2 mCi of technetium 99m Mebrofenin was administered intravenously. Planar images of the abdomen were obtained at 5 min intervals to 60 mins. Delayed images were also obtained. FINDINGS: LIVER: Timely and homogenous uptake. COMMON BILE DUCT: Not visualized even on delayed 4 hour images. GALLBLADDER: Not visualize SMALL BOWEL: Not visualize IMPRESSION: Nonvisualization of the common duct and gallbladder even on 4 hour delayed images. Findings are most likely due to hepatocellular disease. Distal common duct obstruction possible.
--- NOTE | 2017-07-27 14:13 | MRI ---
PROCEDURE: Magnetic Resonance Cholangiopancreatography HISTORY: Elevated liver function test COMPARISON: HIDA scan 07/26/[address] scan 07/25/2017. TECHNIQUE: Multiplanar, multisequence MR images of the abdomen were obtained, including heavily T2 weighted MRCP images of the biliary system. Rotating maximum intensity projection images of the biliary system were generated. FINDINGS: MRCP: The common bile duct is of a normal caliber. No evidence of choledocholithiasis. No intrahepatic biliary ductal dilatation. LIVER: Unremarkable. GALLBLADDER: Unremarkable. SPLEEN: Unremarkable. PANCREAS: Unremarkable. ADRENALS: Unremarkable. KIDNEYS: Multiple simple cysts are seen in the kidneys AORTA: No aneurysm. ASCITES: None. OTHER FINDINGS: None. IMPRESSION: No evidence of biliary obstruction.
--- NOTE | 2017-07-27 14:16 | MRI ---
PROCEDURE: MR angiography of the abdomen without contrast HISTORY: ELEVATED LFTS COMPARISON: MRCP same day TECHNIQUE: MR angiography of the abdomen was performed without IV contrast. The study was extremely limited. The patient was claustrophobic and uncooperative. The patient coughed during the exam. FINDINGS: The aorta S celiac and SMA are patent. Distal branches cannot be evaluated due to the limitations of the exam. The IVC is patent. The portal vein is patent. IMPRESSION: Limited study. No gross venous or arterial obstruction of the larger vessels.
--- NOTE | 2017-07-27 15:41 | CON ---
CARDIOLOGY CONSULTATION REASON FOR CONSULTATION: Preoperative evaluation. HISTORY OF PRESENT ILLNESS: The patient is a 77 years old female, has history of coronary artery disease, underwent a coronary artery bypass surgery 10 years ago at [facility]. The patient is being followed by our table worker, Dr. Mendosa in [place] and she denies having any coronary intervention or cardiac catheterization following her bypass surgery 10 years ago. The patient presents because of abdominal pain. Gallbladder ultrasound revealed echogenic focus within the gallbladder lumen, which could represent echogenic sludge versus noncalcified intraluminal gallstones. HIDA scan revealed nonvisualization of the common bile duct and gallbladder even 4 hours after the late image. Finding most likely due to hepatocellular disease. Distal common duct obstruction is possible. MRCP revealed no evidence of biliary obstruction. Abdominal MRI with MRA revealed limited study. No gross venous or arterial obstruction of the larger vessels. EKG has not been performed yet. The patient denies any chest pain at this time. Her abdominal discomfort has improved. SOCIAL HISTORY: The patient is nonsmoker. She lives with her granddaughter. MEDICATIONS: Cardizem CD 240 mg once a day, Coreg 25 mg once a day, Flagyl 500 mg intravenously q. 8 hours, morphine sulfate 4 mg intravenously q. 4 hours p.r.n. for pain, Protonix 40 mg intravenously daily, Rocephin 1 g intravenously daily, Xanax 1 mg p.o. twice a day, Zofran 4 mg intravenously q. 4 hours p.r.n. PAST MEDICAL HISTORY: Hypertension; coronary artery disease, status post coronary artery bypass surgery. REVIEW OF SYSTEMS: No hematemesis or melena. No fever or chills. PHYSICAL EXAMINATION: GENERAL: The patient is an elderly female who does not appear to be in any acute distress. VITAL SIGNS: Blood pressure 170/72, heart rate 63, temperature 98.6, respirations 19. HEENT: Normocephalic. CHEST: Clear. HEART: S1 and S2 regular. ABDOMEN: Mild epigastric tenderness. Normal bowel sounds. EXTREMITIES: No edema. LABORATORY DATA: Today's hemoglobin and hematocrit 9.9 and 30.1, white count 5.4, platelet count 119,00. Today's SMA-7 is within normal limit except for glucose of 116 and chloride of 109. Today's AST and ALT are elevated at 301 and 2012 respectively. Lipase is elevated at 492. INR is 1.11 and PTT 24.8. ASSESSMENT: 1. Coronary artery disease with history of coronary artery bypass surgery a few years ago. 2. Rule out cholecystitis. 3. Hypertension. 4. Hyperlipidemia. RECOMMENDATIONS: Continue Cardizem CD at 240 mg once a day, Coreg 25 mg once a day, Flagyl 500 mg intravenously q. 8 hours, Protonix is 40 mg intravenously daily, Xanax at 1 mg p.o. twice a day, Zofran 4 mg intravenously q. 4 hours. Obtain 12-lead EKG and an echocardiogram. Filiberto Roche MD
[2017-07-27] MEDS: Sodium Chloride 0.9% 1,000 ML IV SCH (16:57)
--- NOTE | 2017-07-27 17:58 | PN ---
SUBJECTIVE: The patient is a 77-year-old, seen and examined, sitting in chair, seems to be comfortable. Denies any chest pain. No shortness of breath. No more abdominal pain. No nausea. PHYSICAL EXAMINATION: VITAL SIGNS: She is afebrile. Pulse 63, respirations 19, blood pressure 170/72. LUNGS: Bilateral, fair airflow. No rhonchi or crackle. HEART: S1 and S2 audible. ABDOMEN: Soft, obese, nontender. No rebound. No guarding. NEUROLOGIC: The patient is awake, alert, oriented and communicative. LABORATORY DATA: WBC is 5.4, hemoglobin 9.9, hematocrit 30.1 and platelets 119. Chemistry: Sodium 140, potassium 3.7, chloride 109, CO2 of 22, BUN 15, creatinine 1.0, blood sugar of 116. AST 301, ALT 212, and alk phos 652, lipase is 492. The patient had MRI and MRCP done, shows no evidence of biliary obstruction, multiple simple cysts are seen in the kidney and common bile duct is of normal caliber. No evidence of cholelithiasis or intrahepatic biliary dilatation. ASSESSMENT: 1. Acute cholecystitis, nonvisualized, HIDA. 2. Coronary artery disease, status post open heart surgery multiple years ago. 3. Hypertension. 4. Hyperlipidemia. PLAN: Currently, the patient is on carvedilol, we will continue that. She is on Cardizem CD, we will also continue that. She is on Flagyl and Rocephin, we will continue. Cardiology evaluation by Dr. Garza has been requested. We will order for echocardiogram to see LV function. The patient is scheduled to have laparoscopic cholecystectomy on Saturday. Shaq Lancaster MD
[2017-07-27] MEDS: diltiaZEM 240 mg/24 Hours CD Cap PO SCH (21:20)
--- NOTE | 2017-07-28 01:19 | PN ---
DATE: 07/27/2017 SUBJECTIVE: The patient is comfortable. Abdominal discomfort has significantly improved. PHYSICAL EXAMINATION VITAL SIGNS: On examination, temperature 97.3, pulse 61, blood pressure is 194/82. HEENT: Atraumatic, anicteric. NECK: Supple. HEART: S1 and S2 heard. LUNGS: Bilateral air entry present. ABDOMEN: Soft. Mild tenderness present in the right upper quadrant area and in the epigastric area. EXTREMITIES: No cyanosis. No clubbing. NEUROLOGIC: Alert and oriented. Moves all extremities. LABORATORY DATA: Hemoglobin 9.9, hematocrit 30.1, WBC 5.4, platelets 119. BUN is 15, creatinine 0.5. Total bilirubin 3.2, yesterday it was 3.3. AST is gone up to 101, ALT is also gone up to 312. IMPRESSION: This 70 year old patient admitted with distended gallbladder. The HIDA scan showed nonvisualized gallbladder. There was also no contrast in the duodenal. Ultrasound scan done in the past was reviewed, which showed some focal gallbladder wall thickening. It could be due to a sludge. RECOMMENDATIONS: Would recommend at this point followup of the hemoglobin and hematocrit. The CBD in the sonogram was normal, however, he would benefit from the endoscopic ultrasound to further evaluate. The LFTs trend is up. The patient is scheduled to go for the OR. We will discuss with the surgical team regarding this. Thank you very much for allowing us to participate in the care of the patient. Madeline Peralta MD
[2017-07-28] MEDS: metroNIDAZOLE IV 500 mg/100 ml 500 MG/100 ML BAG IVPB SCH ×3 (05:15→21:33)
[2017-07-28] MEDS: Sodium Chloride 0.9% 1,000 ML IV SCH ×2 (05:18→19:39)
[2017-07-28 07:11] LABS: BASO # 0.01 K/mm3 (0.0-2.0); BASO % 0.3 % (0.0-3.0); EOS # 0.2 (0.0-0.7); EOS % 3.8 % (1.5-5.0); GRAN # 2.53 (1.4-6.5); GRAN % 64.1 % (50.0-68.0); HEMATOCRIT 29.2 % (36.0-48.0); LYMPH # 0.9 (1.2-3.4); LYMPH % 21.6 % (22.0-35.0); MEAN CORPUSCULAR HEMOGLOBIN 30.9 pg (25.0-35.0); MEAN CORPUSCULAR HGB CONC 33.2 g/dl (31.0-37.0); MEAN PLATELET VOLUME 11.1 fl (7.0-11.0); MONO # 0.4 (0.1-0.6); MONO % 10.2 % (1.0-6.0); RED CELL DISTRIBUTION WIDTH 13.5 % (11.5-14.5); WHITE BLOOD COUNT 3.9 10^3/ul (4.5-11.0)
[2017-07-28 07:38] LABS: ALB/GLOB RATIO 1.1 (1.1-1.8); ALKALINE PHOSPHATASE 79 U/L (38-126); ALT/SGPT 247 U/L (7-56); AST/SGOT 322 U/L (14-36); BLOOD UREA NITROGEN 7 mg/dL (7-21); CALCIUM 8.7 mg/dL (8.4-10.5); CARBON DIOXIDE 23 mmol/L (21-33); CHLORIDE 111 mmol/L (98-107); GFR AFRICAN-AMERICAN > 60; GLUCOSE,RANDOM 90 mg/dL (70-110); POTASSIUM 3.8 mmol/L (3.6-5.0); SODIUM 140 mmol/L (132-148); TOTAL PROTEIN 5.9 g/dL (5.8-8.3)
--- NOTE | 2017-07-28 08:39 | CP.PCM.PN ---
Subjective - Date & Time of Evaluation Date of Evaluation: 07/28/17 Time of Evaluation: 08:37 - Subjective Subjective: General Surgery Progress Note for Dr. Elias This patient was seen and examined this AM at bedside. No acute events to report overnight. Pt remains afebrile, she reports decreased abdominal pain and complains of diarrhea. Otherwise no new complaints at this time. Objective - Vital Signs/Intake and Output Vital Signs (last 24 hours): Temp Pulse Resp BP Pulse Ox 99.3 F 57 L 20 166/57 H 96 07/28/17 00:01 07/28/17 00:01 07/28/17 00:01 07/28/17 00:01 07/28/17 00:01 Intake and Output: 07/28/17 07/28/17 06:59 18:59 Intake Total 1740 Balance 1740 - Medications Medications: Current Medications Alprazolam (Xanax) 1 mg PO BID PRN; Protocol PRN Reason: Anxiety Stop: 08/01/17 19:03 Last Admin: 07/27/17 06:04 Dose: 1 mg Carvedilol (Coreg) 25 mg PO BID [facility] Last Admin: 07/27/17 16:59 Dose: 25 mg Diltiazem HCl (Cardizem Cd) 240 mg PO HS [facility] Last Admin: 07/27/17 21:20 Dose: 240 mg Sodium Chloride (Sodium Chloride 0.9%) 1,000 mls @ 100 mls/hr IV .Q10H [facility] Last Admin: 07/28/17 05:18 Dose: 100 mls/hr Metronidazole (Flagyl) 500 mg in 100 mls @ 100 mls/hr IVPB Q8 [facility] PRN Reason: Protocol Last Admin: 07/28/17 05:15 Dose: 100 mls/hr Ceftriaxone Sodium (Rocephin 1 Gram Ivpb) 1 gm in 100 mls @ 100 mls/hr IVPB DAILY [facility] PRN Reason: Protocol Last Admin: 07/27/17 09:44 Dose: 100 mls/hr Morphine Sulfate (Morphine) 4 mg IVP Q4H PRN PRN Reason: Pain, moderate (4-7) Ondansetron HCl (Zofran Inj) 4 mg IVP Q4H PRN PRN Reason: Nausea/Vomiting Pantoprazole Sodium (Protonix Inj) 40 mg IVP DAILY [facility] Last Admin: 07/27/17 09:44 Dose: 40 mg - Labs Labs: 07/28/17 06:30 07/28/17 06:30 PT 12.1 SECONDS (9.4-12.5) 07/26/17 15:00 INR 1.11 (0.93-1.08) H 07/26/17 15:00 APTT 24.8 Seconds (25.1-36.5) L 07/26/17 15:00 - Constitutional Appears: Non-toxic, No Acute Distress - Head Exam Head Exam: ATRAUMATIC, NORMOCEPHALIC - Eye Exam Eye Exam: EOMI - ENT Exam ENT Exam: Mucous Membranes Moist - Respiratory Exam Respiratory Exam: NORMAL BREATHING PATTERN - Cardiovascular Exam Cardiovascular Exam: REGULAR RHYTHM - GI/Abdominal Exam GI & Abdominal Exam: Soft. absent: Guarding, Rigid, Tenderness - Neurological Exam Neurological Exam: Alert, Awake - Psychiatric Exam Psychiatric exam: Normal Affect, Normal Mood - Skin Skin Exam: Dry, Intact Assessment and Plan - Assessment and Plan (Free Text) Assessment: 77 F w/ biliary colic, elevated LFTs -MRCP shows no evidence of biliary obstruction -AST/ALT 301/212 -->322/247 -Continue IV ABx, IVF, Pain control prn -Will discuss possible EUS with GI team and coordinate surgical planning -Follow up cardiology planning DW Dr. Curt Nam PGY2
--- NOTE | 2017-07-28 08:59 | CARD ---
APPROVED REPORT EKG Measurement Heart [id number] <Conclusion> Sinus bradycardia NSSTW changes
[2017-07-28] MEDS: cefTRIAXone 1 gm 1 GM/100 ML BAG IVPB SCH (09:14)
--- NOTE | 2017-07-28 13:34 | PN ---
DATE: SUBJECTIVE: Patient is 77 years old, seen and examined, sitting in chair, seems to be comfortable. PHYSICAL EXAMINATION: VITAL SIGNS: She is afebrile. Pulse 56, respirations 20, blood pressure 149/58. LUNGS: Bilateral good airflow. No rhonchi or crackle. HEART: S1 and S2 audible. ABDOMEN: Soft, nontender. No rebound. No guarding. NEUROLOGIC: Patient is awake, alert, oriented, communicative. LABORATORY DATA: WBC is 3.9, hemoglobin 9.7, hematocrit 29.2, platelet 120. Chemistry: Sodium 140, potassium 3.8, chloride 111, CO2 of 23, BUN 7, creatinine 0.9, blood sugar of 90. Total bilirubin 3.0, AST 322, and ALT is 247. Hepatitis profile, hepatitis C antibody is reactive. MRCP done yesterday shows no evidence of biliary obstruction. HIDA scan is nonvisualized. ASSESSMENT: 1. Acute cholecystitis. 2. Worsening liver function tests. 3. Coronary artery disease, status post open heart surgery many many years ago. 4. Hypertension. 5. Hyperlipidemia. PLAN: Dr. Peralta's input noted. Probably, she needs ERCP and EUS prior to cholecystectomy. So, plan is currently patient is on clear liquid, will be n.p.o. after midnight. Continue on Rocephin and Flagyl. We will discuss with Dr. Peralta. We will continue her on diltiazem and carvedilol. Follow up her LFTs in a.m. Shaq Lancaster MD
--- NOTE | 2017-07-28 16:53 | PN ---
SUBJECTIVE: The patient denies any chest pain or shortness of breath. PHYSICAL EXAMINATION: VITAL SIGNS: Blood pressure 149/58, heart rate 56, temperature 98.3, respirations 20. HEENT: Pale conjunctivae. CHEST: Clear. HEART: S1 and S2 regular. EXTREMITIES: No edema. LABORATORY DATA: Hemoglobin and hematocrit 9.7 and 29.2, white count 3.9, platelet count 120,000. SMA-7 today is within normal limits except for chloride of 111. EKG revealed sinus bradycardia at 56. ASSESSMENT: 1. History of coronary artery disease, status post coronary artery bypass surgery. 2. Hypertension. 3. Hyperlipidemia. 4. Biliary colic. RECOMMENDATIONS: Continue current Cardizem CD 240 mg once a day, Coreg 25 mg once a day, Flagyl 500 mg intravenously q.8 hours, Protonix 40 mg intravenously once a day. The patient can undergo upper endoscopy today and further recommendation about surgical clearance after the patient undergoes 2-D echo. Filiberto Roche MD
--- NOTE | 2017-07-28 19:14 | PN ---
DATE: SUBJECTIVE: This patient was seen and evaluated today. The patient is feeling better, she is feeling hungry, she wants to eat food. PHYSICAL EXAMINATION: VITAL SIGNS: Temperature is 98.3, blood pressure is 149/58, pulse is 56, respirations are 20, and O2 saturation is 98%. HEENT: Atraumatic, icteric. NECK: Supple. HEART: S1 and S2 heard. LUNGS: Bilateral air entry present. ABDOMEN: Soft. There is no tenderness now. EXTREMITIES: No erythema. No cyanosis. LABORATORY DATA: Hemoglobin 9.7, hematocrit 29.2, WBC 3.9, and platelets 120. Chemistry shows total bilirubin still elevated to 3.0, AST 322, and ALT 247. IMPRESSION: This 77-year-old patient admitted with abdominal pain, found to have distended gallbladder. Ultrasound showed some sludge with focal thickening of the gallbladder wall with possible sludge. Common bile duct is normal. HIDA scan showed nonvisualized gallbladder and common bile duct. No contrast noticed in the duodenum. The patient had a CAT scan done with the contrast, which did not show any focal pancreatic lesion. Similarly, the patient had an MRCP done, which was reported as negative. LFT elevation is not clear. The differential diagnosis should include possible sludged stone not picked up by these imaging studies and also focal lesion of the pancreas can also be considered, however, the common bile duct is not dilated. Nonvisualized gallbladder, possible cholecystic duct obstruction also has to be considered. It is less likely parenchymal disease as the bilirubin is only 3, which should be able to have a hepatic function to secrete the enough radio nuclear contrast into the biliary system. RECOMMENDATIONS: We would recommend at this point: 1. Followup of the LFTs. 2. Advance the diet to a low-fat diet. 3. We will consider endoscopic ultrasound to further evaluate and possible ERCP if it shows any CBD stone. We will discuss with the surgical team and we would consider holding off OR until the ultrasound is evaluated. The patient will be scheduled for the procedure tomorrow. I also discussed with Dr. Lancaster regarding this patient who has agreed with the plan. Thank you very much for allowing us to participate in the care of the patient. Madeline Peralta MD
[2017-07-28] MEDS: diltiaZEM 240 mg/24 Hours CD Cap PO SCH (21:32)
[2017-07-29] MEDS: metroNIDAZOLE IV 500 mg/100 ml 500 MG/100 ML BAG IVPB SCH ×3 (05:37→21:15)
[2017-07-29 06:33] LABS: BASO # 0.01 K/mm3 (0.0-2.0); BASO % 0.2 % (0.0-3.0); EOS # 0.2 (0.0-0.7); EOS % 4.5 % (1.5-5.0); GRAN # 2.68 (1.4-6.5); GRAN % 63.9 % (50.0-68.0); HEMATOCRIT 29.9 % (36.0-48.0); LYMPH # 0.9 (1.2-3.4); LYMPH % 21.2 % (22.0-35.0); MEAN CORPUSCULAR HEMOGLOBIN 30.8 pg (25.0-35.0); MEAN CORPUSCULAR HGB CONC 33.4 g/dl (31.0-37.0); MEAN PLATELET VOLUME 11.1 fl (7.0-11.0); MONO # 0.4 (0.1-0.6); MONO % 10.2 % (1.0-6.0); RED CELL DISTRIBUTION WIDTH 13.5 % (11.5-14.5); WHITE BLOOD COUNT 4.2 10^3/ul (4.5-11.0)
[2017-07-29 06:38] LABS: ALB/GLOB RATIO 1.1 (1.1-1.8); ALKALINE PHOSPHATASE 103 U/L (38-126); ALT/SGPT 237 U/L (7-56); AST/SGOT 239 U/L (14-36); BILIRUBIN,TOTAL 2.3 mg/dL (0.2-1.3); BLOOD UREA NITROGEN 7 mg/dL (7-21); CALCIUM 9.1 mg/dL (8.4-10.5); CARBON DIOXIDE 22 mmol/L (21-33); CHLORIDE 114 mmol/L (98-107); GFR AFRICAN-AMERICAN > 60; GLUCOSE,RANDOM 112 mg/dL (70-110); POTASSIUM 3.7 mmol/L (3.6-5.0); SODIUM 144 mmol/L (132-148); TOTAL PROTEIN 6.5 g/dL (5.8-8.3)
[2017-07-29 06:41] LABS: INR 1.01 (0.93-1.08); PARTIAL THROMBOPLASTIN TIME 26.4 Seconds (25.1-36.5)
--- NOTE | 2017-07-29 08:46 | CP.PCM.PN ---
Subjective - Date & Time of Evaluation Date of Evaluation: 07/29/17 Time of Evaluation: 07:30 - Subjective Subjective: Surgery: Dr. Elias Pt seen and examined. No acute overnight events. States she feels ok this morning and is nervous about the ERCP. Abdominal pain has resolved. Denies N/V, F/C. Objective - Vital Signs/Intake and Output Vital Signs (last 24 hours): Temp Pulse Resp BP Pulse Ox 98.3 F 57 L 20 168/75 H 98 07/28/17 06:00 07/28/17 21:32 07/28/17 06:00 07/28/17 21:32 07/28/17 06:00 Intake and Output: 07/29/17 07/29/17 06:59 18:59 Intake Total 1620 Output Total 0 Balance 1620 - Medications Medications: Current Medications Alprazolam (Xanax) 1 mg PO BID PRN; Protocol PRN Reason: Anxiety Stop: 08/01/17 19:03 Last Admin: 07/29/17 07:57 Dose: 1 mg Carvedilol (Coreg) 25 mg PO BID [facility] Last Admin: 07/28/17 17:41 Dose: 25 mg Diltiazem HCl (Cardizem Cd) 240 mg PO HS [facility] Last Admin: 07/28/17 21:32 Dose: 240 mg Sodium Chloride (Sodium Chloride 0.9%) 1,000 mls @ 100 mls/hr IV .Q10H [facility] Last Admin: 07/28/17 19:39 Dose: 100 mls/hr Metronidazole (Flagyl) 500 mg in 100 mls @ 100 mls/hr IVPB Q8 [facility] PRN Reason: Protocol Last Admin: 07/29/17 05:37 Dose: 100 mls/hr Ceftriaxone Sodium (Rocephin 1 Gram Ivpb) 1 gm in 100 mls @ 100 mls/hr IVPB DAILY [facility] PRN Reason: Protocol Last Admin: 07/28/17 09:14 Dose: 100 mls/hr Morphine Sulfate (Morphine) 4 mg IVP Q4H PRN PRN Reason: Pain, moderate (4-7) Ondansetron HCl (Zofran Inj) 4 mg IVP Q4H PRN PRN Reason: Nausea/Vomiting Pantoprazole Sodium (Protonix Inj) 40 mg IVP DAILY [facility] Last Admin: 07/28/17 09:14 Dose: 40 mg - Labs Labs: 07/29/17 05:30 07/29/17 05:30 PT 11.1 SECONDS (9.4-12.5) 07/29/17 05:00 INR 1.01 (0.93-1.08) 07/29/17 05:00 APTT 26.4 Seconds (25.1-36.5) 07/29/17 05:00 - Constitutional Appears: Well, No Acute Distress - Head Exam Head Exam: ATRAUMATIC, NORMOCEPHALIC - Eye Exam Eye Exam: Normal appearance - ENT Exam ENT Exam: Mucous Membranes Moist - Respiratory Exam Respiratory Exam: NORMAL BREATHING PATTERN - Cardiovascular Exam Cardiovascular Exam: RRR - GI/Abdominal Exam GI & Abdominal Exam: Soft. absent: Distended, Tenderness - Neurological Exam Neurological Exam: Alert, Awake, Oriented x3 - Skin Skin Exam: Dry, Warm Assessment and Plan - Assessment and Plan (Free Text) Assessment: 77F with acute cholecystitis & elevated liver enzymes; r/o choledocholithiasis Plan: - ERCP/EUS planned for this AM with GI - will f/u with results after - plan for [place] tomorrow pending ERCP - d/w Dr. Curt Baker, PGY-3 Surgery
[2017-07-29] MEDS ORDERED: Iohexol 240 (50 ml) ONE (09:36)
--- NOTE | 2017-07-29 10:34 | RAD ---
HISTORY: PRE OP COMPARISON: No prior. TECHNIQUE: Chest PA and lateral FINDINGS: LUNGS: No active pulmonary disease. PLEURA: No significant pleural effusion identified. No pneumothorax apparent. CARDIOVASCULAR: Normal. OSSEOUS STRUCTURES: Sternal wires VISUALIZED UPPER ABDOMEN: Normal. OTHER FINDINGS: None. IMPRESSION: No active disease.
[2017-07-29] MEDS: cefTRIAXone 1 gm 1 GM/100 ML BAG IVPB SCH (10:48)
[2017-07-29] MEDS ORDERED: Indomethacin 50 MG Suppository PR ONE ×2 (13:27→15:52)
[2017-07-29] MEDS ORDERED: Etomidate 20 mg/10ml Inj IV ONE (14:41)
[2017-07-29] MEDS ORDERED: Desflurane Inhalation Anesthetic Liq (240 ml) ONE (14:41)
--- NOTE | 2017-07-29 14:57 | CARD ---
APPROVED REPORT EXAM: Two-dimensional and M-mode echocardiogram with Doppler and color Doppler. INDICATION Pre-Op 2D DIMENSIONS Left Atrium (2D)4.2 (1.6-4.0cm)IVSd0.9 (0.7-1.1cm) LVDd4.9 (3.9-5.9cm)PWd1.1 (0.7-1.1cm) LVDs3.2 (2.5-4.0cm)FS (%) 33.9 % LVEF (%)62.5 (>50%) M-Mode DIMENSIONS Aortic Root3.00 (2.2-3.7cm)Aortic Cusp Exc.1.70 (1.5-2.0cm) Aortic Valve AoV Peak Hxqjtifx661.0cm/Cecilio Peak GR.9mmHg Mitral Valve MV E Vgeqaipy697.0cm/sMV A Qupajavm18.5cm/sE/A ratio1.4 TDI Lateral E' Peak V8.19cm/sMedial E' Peak V6.34cm/sE/Lateral E'15.8 E/Medial E'20.3 Pulmonary Valve PV Peak Ydobnfyv73.9cm/sPV Peak Grad.3mmHg Tricuspid Valve TR Peak Bghotwyx682hl/sRAP [id number] Peak Gr.40mmHg [id number] LEFT VENTRICLE The left ventricle is normal size. There is normal left ventricular wall thickness. The left ventricular function is normal. The left ventricular ejection fraction is within the normal range. There is normal LV segmental wall motion. Transmitral Doppler flow pattern is Grade II-pseudonormal filling dynamics. RIGHT VENTRICLE The right ventricle is normal size. There is normal right ventricular wall thickness. The right ventricular systolic function is normal. ATRIA The left atrium is mildly dilated. The right atrium is borderline dilated. AORTIC VALVE The aortic valve is mildly thickened. No aortic regurgitation is present. MITRAL VALVE The mitral valve is mildly thickened. Mitral regurgitation is mild. TRICUSPID VALVE There is mild tricuspid regurgitation. There is mild to moderate pulmonary hypertension. PULMONIC VALVE There is mild pulmonic valvular regurgitation. GREAT VESSELS The aortic root is normal in size. PERICARDIAL EFFUSION There is no pericardial effusion. <Conclusion> The left ventricle is normal size. There is normal left ventricular wall thickness. The left ventricular function is normal. The left ventricular ejection fraction is within the normal range. There is normal LV segmental wall motion. Mitral regurgitation is mild. There is mild tricuspid regurgitation. There is mild to moderate pulmonary hypertension. There is mild pulmonic valvular regurgitation.
[2017-07-29] MEDS ORDERED: ePHEDrine 50 mg/ml Inj ONE (15:18)
[2017-07-29] MEDS ORDERED: Glucagon Recombinant 1 mg Inj IV ONE (16:00)
--- NOTE | 2017-07-29 16:29 | PN ---
DATE: 07/29/2017 LOCATION: The patient is in room 363, bed 2. REASON FOR CONSULTATION: Coronary artery disease, history of bypass surgery, hypertension, hyperlipidemia, possible cholecystitis. SUBJECTIVE: The patient is sitting in chair without any cardiac symptom like chest pain, shortness of breath, or palpitation. PHYSICAL EXAMINATION: VITAL SIGNS: Blood pressure 168/75, respirations 20, pulse 61, temperature 98.3. HEENT: Head is normocephalic. Eyes; pupils normal. Conjunctivae slightly pale. NECK: JVP low. Carotids equal. THORAX: AP diameter normal. LUNGS: Clear. CARDIOVASCULAR: S1 and S2. ABDOMEN: Soft. Bowel sounds normal. EXTREMITIES: No clubbing. No cyanosis. LABORATORY DATA: WBC 4.2, hemoglobin 10.0, hematocrit 29.9, platelet 136. Sodium 144, potassium 3.7, BUN 7, creatinine 0.8, random glucose 112, calcium 9.1, AST 239, ALT 237, alkaline phosphatase 103. DIAGNOSTIC DATA: EKG showed sinus bradycardia, nonspecific ST-T changes. Chest x-ray is clear. DIAGNOSES: Coronary artery disease, history of coronary bypass surgery 10 years ago at [facility], hypertension, hyperlipidemia, abdominal pain, rule out cholecystitis. PLAN: Clinically, the patient does not have any cardiac symptoms. The patient is on diltiazem CD 240 mg daily, carvedilol 25 b.i.d., Rocephin 1 g IV daily, metronidazole 500 mg IV q. 8 hours. The patient follows as an outpatient with Dr. Mendosa, sales development director in [place]. Her bypass surgery for coronary artery disease was done 10 years ago at [facility]. The patient is going to have echo today. We will follow the echo report. In the meantime if any GI procedure is needed, the patient can go for procedure as a moderate risk; however, we will continue to follow closely. Linette Staton MD
[2017-07-29] MEDS: Sodium Chloride 0.9% 1,000 ML IV SCH (18:25)
--- NOTE | 2017-07-29 20:07 | PN ---
DATE: SUBJECTIVE: The patient is a 77-year-old, seen and examined, sitting in chair, seems to be comfortable. No more abdominal pain. No nausea, vomiting or diarrhea. PHYSICAL EXAMINATION VITAL SIGNS: She is afebrile. Pulse 52, respirations 16, blood pressure 148/65. LUNGS: Bilateral fair airflow. No rhonchi or crackles. HEART: S1 and S2 audible. ABDOMEN: Soft, obese, nontender. No rebound. No guarding. NEUROLOGIC: She is awake, alert, oriented, communicative, ambulatory. LABORATORY EXAMINATION: WBC 4.2, hemoglobin 10, hematocrit 29, platelet 136. Chemistry: Sodium 144, potassium 3.7, chloride 114, CO2 of 22, BUN 7, creatinine 0.8, blood sugar of 112. AST 239, ALT 237. Hepatitis profile, hepatitis C antibody is positive. ASSESSMENT: 1. Status post endoscopic retrograde cholangio-pancreatography. 2. Hypertension. 3. Coronary artery disease, status post open heart surgery. 4. Acute cholecystitis. PLAN: I will discuss with Dr. Peralta. We will continue to keep her n.p.o. She is on IV fluid and IV antibiotics. We will follow the patient in a.m. Shaq Lancaster MD
[2017-07-29] MEDS: diltiaZEM 240 mg/24 Hours CD Cap PO SCH (21:10)
--- NOTE | 2017-07-29 22:39 | CP.PCM.PN ---
Subjective - Date & Time of Evaluation Date of Evaluation: 07/29/17 Time of Evaluation: 22:38 - Subjective Subjective: S:Patient's blood pressure is 178/82. Has no complaints. Medical record was reviewed. O: Last Vital Signs 3 Temp 98 F 07/29/17 17:36 Pulse 58 L 07/29/17 22:43 Resp 16 07/29/17 17:36 BP 178/82 H 07/29/17 22:43 Pulse Ox 99 07/29/17 17:36 LUNGS:Normal breathing pattern. A:Elevated blood pressure reading. P:Clonidine 0.1 mg PO x 1. Objective - Vital Signs/Intake and Output Vital Signs (last 24 hours): Temp Pulse Resp BP Pulse Ox 98 F 55 L 16 198/85 H 99 07/29/17 17:36 07/29/17 21:10 07/29/17 17:36 07/29/17 21:10 07/29/17 17:36 Intake and Output: 07/29/17 07/30/17 18:59 06:59 Intake Total 0 0 Balance 0 0 - Medications Medications: Current Medications Alprazolam (Xanax) 1 mg PO BID PRN; Protocol PRN Reason: Anxiety Stop: 08/01/17 19:03 Last Admin: 07/29/17 07:57 Dose: 1 mg Carvedilol (Coreg) 25 mg PO BID [facility] Last Admin: 07/29/17 18:25 Dose: 25 mg Diltiazem HCl (Cardizem Cd) 240 mg PO HS [facility] Last Admin: 07/29/17 21:10 Dose: 240 mg Metronidazole (Flagyl) 500 mg in 100 mls @ 100 mls/hr IVPB Q8 [facility] PRN Reason: Protocol Last Admin: 07/29/17 21:15 Dose: 100 mls/hr Ceftriaxone Sodium (Rocephin 1 Gram Ivpb (D5w)) 1 gm in 100 mls @ 100 mls/hr IVPB DAILY [facility] PRN Reason: Protocol Sodium Chloride (Sodium Chloride 0.9%) 1,000 mls @ 100 mls/hr IV .Q10H [facility] Last Admin: 07/29/17 18:25 Dose: 100 mls/hr Morphine Sulfate (Morphine) 4 mg IVP Q4H PRN PRN Reason: Pain, moderate (4-7) Ondansetron HCl (Zofran Inj) 4 mg IVP Q4H PRN PRN Reason: Nausea/Vomiting Pantoprazole Sodium (Protonix Inj) 40 mg IVP DAILY [facility] Last Admin: 07/29/17 10:33 Dose: 40 mg Tramadol HCl (Ultram) 50 mg PO TID PRN PRN Reason: Pain, moderate (4-7) Last Admin: 07/29/17 11:33 Dose: 50 mg - Labs Labs: 07/29/17 05:30 07/29/17 05:30 PT 11.1 SECONDS (9.4-12.5) 07/29/17 05:00 INR 1.01 (0.93-1.08) 07/29/17 05:00 APTT 26.4 Seconds (25.1-36.5) 07/29/17 05:00
[2017-07-30] MEDS: Sodium Chloride 0.9% 1,000 ML IV SCH ×2 (04:30→13:34)
[2017-07-30 07:14] LABS: BASO # 0.01 K/mm3 (0.0-2.0); BASO % 0.2 % (0.0-3.0); EOS # 0.3 (0.0-0.7); EOS % 5.3 % (1.5-5.0); GRAN # 3.49 (1.4-6.5); HEMATOCRIT 31.1 % (36.0-48.0); LYMPH # 1.3 (1.2-3.4); LYMPH % 23.4 % (22.0-35.0); MEAN CORPUSCULAR HEMOGLOBIN 29.9 pg (25.0-35.0); MEAN CORPUSCULAR HGB CONC 32.5 g/dl (31.0-37.0); MEAN PLATELET VOLUME 10.3 fl (7.0-11.0); MONO # 0.4 (0.1-0.6); MONO % 7.1 % (1.0-6.0); RED CELL DISTRIBUTION WIDTH 13.6 % (11.5-14.5); WHITE BLOOD COUNT 5.5 10^3/ul (4.5-11.0)
[2017-07-30 07:43] LABS: ALKALINE PHOSPHATASE 81 U/L (38-126); ALT/SGPT 173 U/L (7-56); AST/SGOT 116 U/L (14-36); BILIRUBIN,TOTAL 1.6 mg/dL (0.2-1.3); BLOOD UREA NITROGEN 6 mg/dL (7-21); CALCIUM 8.6 mg/dL (8.4-10.5); CARBON DIOXIDE 20 mmol/L (21-33); CHLORIDE 110 mmol/L (98-107); GFR AFRICAN-AMERICAN > 60; GLUCOSE,RANDOM 82 mg/dL (70-110); POTASSIUM 3.4 mmol/L (3.6-5.0); SODIUM 139 mmol/L (132-148); TOTAL PROTEIN 6.2 g/dL (5.8-8.3)
[2017-07-30 08:24] VITALS: O2SAT 96
[2017-07-30] MEDS: cefTRIAXone 1 gm 1 GM/100 ML BAG IVPB SCH (09:43)
--- NOTE | 2017-07-30 10:19 | CP.PCM.PN ---
Subjective - Date & Time of Evaluation Date of Evaluation: 07/30/17 Time of Evaluation: 10:15 - Subjective Subjective: PGY1 Note for Dr. Elias HPI: Patient seen and examined at bedside. Doing well with no complaints at this time. EUS/ERCP yesterday. Tolerated procedure well. Denies fever, chill, abdominal pain. Objective - Vital Signs/Intake and Output Vital Signs (last 24 hours): Temp Pulse Resp BP Pulse Ox 98.2 F 55 L 20 152/68 H 96 07/30/17 08:24 07/30/17 09:15 07/30/17 08:24 07/30/17 09:15 07/30/17 08:24 Intake and Output: 07/30/17 07/30/17 06:59 18:59 Intake Total 0 Balance 0 - Medications Medications: Current Medications Alprazolam (Xanax) 1 mg PO BID PRN; Protocol PRN Reason: Anxiety Stop: 08/01/17 19:03 Last Admin: 07/29/17 07:57 Dose: 1 mg Carvedilol (Coreg) 25 mg PO BID [facility] Last Admin: 07/30/17 09:15 Dose: 25 mg Diltiazem HCl (Cardizem Cd) 240 mg PO HS [facility] Last Admin: 07/29/17 21:10 Dose: 240 mg Metronidazole (Flagyl) 500 mg in 100 mls @ 100 mls/hr IVPB Q8 [facility] PRN Reason: Protocol Last Admin: 07/29/17 21:15 Dose: 100 mls/hr Ceftriaxone Sodium (Rocephin 1 Gram Ivpb (D5w)) 1 gm in 100 mls @ 100 mls/hr IVPB DAILY [facility] PRN Reason: Protocol Last Admin: 07/30/17 09:43 Dose: 100 mls/hr Sodium Chloride (Sodium Chloride 0.9%) 1,000 mls @ 100 mls/hr IV .Q10H [facility] Last Admin: 07/30/17 04:30 Dose: 100 mls/hr Morphine Sulfate (Morphine) 4 mg IVP Q4H PRN PRN Reason: Pain, moderate (4-7) Ondansetron HCl (Zofran Inj) 4 mg IVP Q4H PRN PRN Reason: Nausea/Vomiting Pantoprazole Sodium (Protonix Inj) 40 mg IVP DAILY [facility] Last Admin: 07/30/17 09:15 Dose: 40 mg Tramadol HCl (Ultram) 50 mg PO TID PRN PRN Reason: Pain, moderate (4-7) Last Admin: 07/29/17 11:33 Dose: 50 mg - Labs Labs: 07/30/17 07:00 07/30/17 07:00 PT 11.1 SECONDS (9.4-12.5) 07/29/17 05:00 INR 1.01 (0.93-1.08) 07/29/17 05:00 APTT 26.4 Seconds (25.1-36.5) 07/29/17 05:00 - Constitutional Appears: Well, Non-toxic, No Acute Distress - Head Exam Head Exam: ATRAUMATIC, NORMAL INSPECTION, NORMOCEPHALIC - Eye Exam Eye Exam: EOMI Pupil Exam: NORMAL ACCOMODATION - ENT Exam ENT Exam: Mucous Membranes Moist - Respiratory Exam Respiratory Exam: Clear to Ausculation Bilateral, NORMAL BREATHING PATTERN - Cardiovascular Exam Cardiovascular Exam: REGULAR RHYTHM - GI/Abdominal Exam GI & Abdominal Exam: Soft, Normal Bowel Sounds - Extremities Exam Extremities Exam: absent: Joint Swelling, Tenderness - Back Exam Back Exam: absent: CVA tenderness (L), CVA tenderness (R) - Neurological Exam Neurological Exam: Alert, Awake, Oriented x3 - Psychiatric Exam Psychiatric exam: Normal Affect, Normal Mood - Skin Skin Exam: Dry, Intact, Normal Color, Warm Assessment and Plan - Assessment and Plan (Free Text) Assessment: 77F s/p EUS/EGD for CBD stricture Plan: * CBD stent placed for stricture yesterday * No immediate surgical intervention needed at this time * F/U as outpatient with Dr. Elias in the office for elective cholecystectomy * D/W Dr. Elias
--- NOTE | 2017-07-30 11:19 | PN ---
DATE: 07/30/2017 The patient was seen on the floor. ERCP yesterday showed a stricture for which cytology was done. The stent was placed. Review of the HIDA scan is consistent with biliary obstruction that has now been adequately treated. We will defer the surgery pending cytology, but this can be done electively. Ben Elias MD
[2017-07-30] MEDS ORDERED: Potassium Chloride 20 mEq ER Tab PO ONE (12:03)
--- NOTE | 2017-07-30 13:07 | CP.PCM.PN ---
<Yashira Cahwla - Last Filed: 07/30/17 12:52> Subjective - Date & Time of Evaluation Date of Evaluation: 07/30/17 Time of Evaluation: 10:10 - Subjective Subjective: Seen and examined at bedside earlier this a.m.,status post EGD/EUS/ERCP, had stent placement at pseudocyst, biliary slept, no stones status post cytology brushing.On endoscopy found to have esophageal ulcers. Patient denies nausea, vomiting, fever, or chills. Abdominal pain is, just feels sore per patient. Patient is hungry, no acute overnight events reported. Objective - Vital Signs/Intake and Output Vital Signs (last 24 hours): Temp Pulse Resp BP Pulse Ox 98.2 F 55 L 20 152/68 H 96 07/30/17 08:24 07/30/17 09:15 07/30/17 08:24 07/30/17 09:15 07/30/17 08:24 Intake and Output: 07/30/17 07/30/17 06:59 18:59 Intake Total 0 Balance 0 - Medications Medications: Current Medications Alprazolam (Xanax) 1 mg PO BID PRN; Protocol PRN Reason: Anxiety Stop: 08/01/17 19:03 Last Admin: 07/29/17 07:57 Dose: 1 mg Carvedilol (Coreg) 25 mg PO BID [facility] Last Admin: 07/30/17 09:15 Dose: 25 mg Diltiazem HCl (Cardizem Cd) 240 mg PO HS [facility] Last Admin: 07/29/17 21:10 Dose: 240 mg Metronidazole (Flagyl) 500 mg in 100 mls @ 100 mls/hr IVPB Q8 [facility] PRN Reason: Protocol Last Admin: 07/29/17 21:15 Dose: 100 mls/hr Ceftriaxone Sodium (Rocephin 1 Gram Ivpb (D5w)) 1 gm in 100 mls @ 100 mls/hr IVPB DAILY [facility] PRN Reason: Protocol Last Admin: 07/30/17 09:43 Dose: 100 mls/hr Sodium Chloride (Sodium Chloride 0.9%) 1,000 mls @ 100 mls/hr IV .Q10H [facility] Last Admin: 07/30/17 04:30 Dose: 100 mls/hr Morphine Sulfate (Morphine) 4 mg IVP Q4H PRN PRN Reason: Pain, moderate (4-7) Ondansetron HCl (Zofran Inj) 4 mg IVP Q4H PRN PRN Reason: Nausea/Vomiting Pantoprazole Sodium (Protonix Inj) 40 mg IVP DAILY [facility] Last Admin: 07/30/17 09:15 Dose: 40 mg Tramadol HCl (Ultram) 50 mg PO TID PRN PRN Reason: Pain, moderate (4-7) Last Admin: 07/29/17 11:33 Dose: 50 mg - Labs Labs: 07/30/17 07:00 07/30/17 07:00 PT 11.1 SECONDS (9.4-12.5) 07/29/17 05:00 INR 1.01 (0.93-1.08) 07/29/17 05:00 APTT 26.4 Seconds (25.1-36.5) 07/29/17 05:00 - Constitutional Appears: No Acute Distress - Head Exam Head Exam: NORMOCEPHALIC - Eye Exam Eye Exam: Normal appearance. absent: Scleral icterus - ENT Exam ENT Exam: Mucous Membranes Moist - Neck Exam Neck Exam: Normal Inspection - Respiratory Exam Respiratory Exam: Decreased Breath Sounds, NORMAL BREATHING PATTERN. absent: Respiratory Distress - Cardiovascular Exam Cardiovascular Exam: +S1, +S2 - GI/Abdominal Exam GI & Abdominal Exam: Soft, Normal Bowel Sounds. absent: Guarding, Tenderness, Rebound - Extremities Exam Extremities Exam: Normal Capillary Refill. absent: Calf Tenderness, Pedal Edema - Neurological Exam Neurological Exam: Alert, Awake, Oriented x3 - Skin Skin Exam: Dry, Warm Assessment and Plan - Assessment and Plan (Free Text) Assessment: Assessment: Status post ERCP found biliary stricture, status post 7CM plastic stent and cytology brushing Possible Acute cholecystitis, GB nonvisualized, EUS , no GB wall thickening Elevated LFTs Hypertension Coronary artery disease, status post open heart surgery Plan: Trend LFTs Continue Protonix On IV antibiotics: ceftriaxone/flagyl Diet has been advance to heart healthy as Continue surgical fU Follow-up cytology brushings Seen and discussed w/ Dr. Peralta. <Madeline Peralta V - Last Filed: 07/31/17 00:03> Objective - Vital Signs/Intake and Output Vital Signs (last 24 hours): Temp Pulse Resp BP Pulse Ox 97.8 F 57 L 20 170/66 H 96 07/30/17 15:57 07/30/17 21:23 07/30/17 15:57 07/30/17 21:23 07/30/17 15:57 Intake and Output: 07/30/17 07/31/17 18:59 06:59 Intake Total 660 420 Balance 660 420 - Medications Medications: Current Medications Alprazolam (Xanax) 1 mg PO BID PRN; Protocol PRN Reason: Anxiety Stop: 08/01/17 19:03 Last Admin: 07/29/17 07:57 Dose: 1 mg Carvedilol (Coreg) 25 mg PO BID [facility] Last Admin: 07/30/17 17:07 Dose: 25 mg Diltiazem HCl (Cardizem Cd) 360 mg PO HS [facility] Last Admin: 07/30/17 21:23 Dose: 360 mg Metronidazole (Flagyl) 500 mg in 100 mls @ 100 mls/hr IVPB Q8 [facility] PRN Reason: Protocol Last Admin: 07/30/17 21:23 Dose: 100 mls/hr Ceftriaxone Sodium (Rocephin 1 Gram Ivpb (D5w)) 1 gm in 100 mls @ 100 mls/hr IVPB DAILY [facility] PRN Reason: Protocol Last Admin: 07/30/17 09:43 Dose: 100 mls/hr Morphine Sulfate (Morphine) 4 mg IVP Q4H PRN PRN Reason: Pain, moderate (4-7) Ondansetron HCl (Zofran Inj) 4 mg IVP Q4H PRN PRN Reason: Nausea/Vomiting Pantoprazole Sodium (Protonix Ec Tab) 40 mg PO DAILY [facility] Tramadol HCl (Ultram) 50 mg PO TID PRN PRN Reason: Pain, moderate (4-7) Last Admin: 07/29/17 11:33 Dose: 50 mg - Labs Labs: 07/30/17 07:00 07/30/17 07:00 PT 11.1 SECONDS (9.4-12.5) 07/29/17 05:00 INR 1.01 (0.93-1.08) 07/29/17 05:00 APTT 26.4 Seconds (25.1-36.5) 07/29/17 05:00 Attending/Attestation - Attestation I have personally seen and examined this patient.: Yes I have fully participated in the care of the patient.: Yes I have reviewed all pertinent clinical information, including history, physical exam and plan: Yes Notes (Text): this patient was seen and evaluated here earlier This is an addendum to the [facility] progress report dictated by Yashira CLAY Patient's daughter and family were at bedside Patient was feeling better no abdominal pain Discussed with Dr. Elias earlier today The plan is to await for distal biliary stricture brushing results priorconsideration for cholecystectomy. the patient has gallbladder sludge versus lesion;patient would need cholecystectomy 07/30/17 23:55
[2017-07-30] MEDS: metroNIDAZOLE IV 500 mg/100 ml 500 MG/100 ML BAG IVPB SCH ×2 (13:33→21:23)
--- NOTE | 2017-07-30 15:31 | PN ---
DATE: REASON FOR CONSULTATION AND FOLLOWUP: Coronary artery disease status post coronary artery bypass, hypertension, hyperlipidemia, and possible cholecystitis, status post ERCP. SUBJECTIVE: The patient denies any chest pain, shortness of breath or any palpitation. OBJECTIVE: GENERAL: Not in apparent distress. VITAL SIGNS: As follows; temperature afebrile, heart rate 55, and blood pressure . HEENT: PERRLA. Extraocular muscles intact. NECK: Supple. No carotid bruits. No thyromegaly. CHEST: Clear to auscultation. HEART: S1 and S2, regular. ABDOMEN: Soft. EXTREMITIES: Clubbing and cyanosis negative. LABORATORY DATA: Blood workup as follows; WBC 5.5, hemoglobin 10.1, hematocrit 31.1, and platelet count 131. Chemistry shows sodium of 130, potassium of 3.4, chloride of 110, carbon dioxide of 20, anion gap of 13, BUN , and creatinine 0.7. Elevated LFTs. IMPRESSION: Status post esophagogastroduodenoscopy, possible cholecystitis, history of coronary artery bypass grafting 10 to 12 years ago in [facility], being followed by Dr. Danilo Mendosa, Cardiology. RECOMMENDATIONS: Continue Cardizem CD 240. Continue Coreg. We will discontinue telemetry. No anginal symptom. The patient is stable. Upon discharge, the patient will be followed up by Dr. Danilo Mendosa and the appointment to see in August or September. We will supplement potassium. Linette Garza MD
[2017-07-30] MEDS ORDERED: diltiaZEM 240 mg/24 Hours CD Cap PO SCH (18:02)
--- NOTE | 2017-07-30 19:51 | PN ---
DATE: SUBJECTIVE: The patient is a 77-year-old, seen and examined, sitting in chair, seems to be comfortable, eating and tolerating. No abdominal pain. PHYSICAL EXAMINATION: VITAL SIGNS: She is afebrile, pulse 52, respirations 20 and blood pressure 156/86. LUNGS: Bilateral fair airflow. No rhonchi or crackle. HEART: S1 and S2 audible. ABDOMEN: Soft and nontender. No rebound. No guarding. NEUROLOGIC: She is awake, alert, oriented, communicative and ambulatory. LABORATORY DATA: WBC is 5.5, hemoglobin 10, hematocrit 31 and platelet 131. Chemistry: Sodium 139, potassium 3.4, chloride 110, CO2 of 20, BUN 6, creatinine 0.7, and blood sugar of 82. LFTs have been improving; AST is 116, ALT 173, and alk phos is normal. ASSESSMENT AND PLAN: Abnormal liver function tests secondary to common bile duct stricture. The patient had endoscopic retrograde cholangiopancreatography done and had stent placed. Liver function tests seem to be improving. The patient has non-visualized HIDA. Discussed with the patient's family who was at the bedside that she can have cholecystectomy electively later on since her liver function tests are improving since stent has been placed. We will advance her diet, discontinue her IV fluid. If her liver function tests are trending down, she can be discharged in a.m. and she can have elective cholecystectomy done later on. Potassium has been supplemented. We will follow up CMP in a.m. Shaq Lancaster MD
[2017-07-30] MEDS ORDERED: diltiaZEM 180 mg/24 Hours CD Cap PO SCH (22:00)
[2017-07-31] MEDS: metroNIDAZOLE IV 500 mg/100 ml 500 MG/100 ML BAG IVPB SCH (05:10)
[2017-07-31 07:26] LABS: ALB/GLOB RATIO 1.1 (1.1-1.8); ALKALINE PHOSPHATASE 92 U/L (38-126); ALT/SGPT 129 U/L (7-56); AST/SGOT 77 U/L (14-36); BILIRUBIN,TOTAL 1.2 mg/dL (0.2-1.3); BLOOD UREA NITROGEN 6 mg/dL (7-21); CARBON DIOXIDE 22 mmol/L (21-33); CHLORIDE 110 mmol/L (98-107); GFR AFRICAN-AMERICAN > 60; GLUCOSE,RANDOM 99 mg/dL (70-110); POTASSIUM 3.5 mmol/L (3.6-5.0); SODIUM 140 mmol/L (132-148)
[2017-07-31 08:14] VITALS: BP 167/78; RESP 18; TEMP 99.3
[2017-07-31] MEDS ORDERED: Potassium Chloride 20 mEq ER Tab PO ONE (09:07)
[2017-07-31] MEDS ORDERED: POLYETHYLENE GLYCOL 3350 17 GM/Dose PACKET PO ONE (09:44)
[2017-07-31] MEDS ORDERED: Pantoprazole 40 mg EC Tab PO SCH (10:00)
[2017-07-31] MEDS: cefTRIAXone 1 gm 1 GM/100 ML BAG IVPB SCH (10:23)
[2017-07-31 10:26] VITALS: PULSE 60
--- NOTE | 2017-07-31 13:20 | PN ---
DATE: 07/31/2017 REASON FOR CONSULTATION: Coronary artery disease, status post coronary artery bypass surgery, hypertension, hyperlipidemia, possible cholecystitis, status post ERCP, preop cardiac evaluation, and followup. SUBJECTIVE: The patient denies any chest pain, shortness of breath, or any palpitation. OBJECTIVE: Not in apparent distress. PHYSICAL EXAMINATION: VITAL SIGNS: Temperature afebrile, heart rate 54, blood pressure 167/78. HEENT: PERRLA intact. NECK: Supple. No carotid bruits or thyromegaly. CHEST: Clear to auscultation. HEART: S1 and S2 regular. ABDOMEN: Soft. EXTREMITIES: Clubbing and cyanosis negative. LABORATORY DATA: Blood workup as follows: WBC 5.5, hemoglobin 10.2, hematocrit 31.1, and platelet count 131. Chemistry showed sodium 140, potassium 3.5, chloride 110, carbon dioxide 22, anion gap of 11, BUN 6, creatinine 0.7. AST 77, ALT 129. IMPRESSION: Acute cholecystitis and gallstone, stricture in the biliary duct, status post EGD and status post EUS, status post ERCP, status post stent in the common biliary duct because of stricture. Abnormal liver function tests, secondary to biliary obstruction, secondary to stricture, history of coronary artery bypass 22 years ago at [facility], being followed by Dr. Danilo Mendosa and no anginal symptoms at this time. The patient had echocardiography done on 07/29/2017. Yesterday, found to be in normal LV function, calculated ejection fraction of 62%, normal segmental wall motion, mild tricuspid regurgitation, mild mitral regurgitation, [id number] pulmonary hypertension, RV systolic pressure 50, mild pulmonary insufficiency. RECOMMENDATIONS: Continue GI workup. No cardiac symptoms at this time. The patient is asymptomatic. The patient is being followed by Dr. Danilo Mendosa. Upon discharge, the patient will be followed up by Dr. Mendosa and complete the workup. Cardizem CD was increased yesterday by Dr. Lancaster to 360 mg from today, Coreg 25 mg b.i.d., lisinopril was discontinued by Dr. Lancaster. Follow with this. Because of bradycardia, consider again re-adding TACO inhibitor, supplement potassium. I will follow with you. Linette Garza MD Psychiatric # [id number]
--- NOTE | 2017-07-31 13:29 | CP.PCM.PN ---
Subjective - Date & Time of Evaluation Date of Evaluation: 07/31/17 Time of Evaluation: 09:55 - Subjective Subjective: S&E at bedside, chart reviewed, no acute overnight events, no BM x2 days, no N/ V or abdominal pain. Offers no new complaints. No SOB or chest pain. Objective - Vital Signs/Intake and Output Vital Signs (last 24 hours): Temp Pulse Resp BP Pulse Ox 99.3 F 60 18 167/78 H 96 07/31/17 08:13 07/31/17 10:23 07/31/17 08:13 07/31/17 10:23 07/31/17 08:13 Intake and Output: 07/31/17 07/31/17 06:59 18:59 Intake Total 960 Balance 960 - Medications Medications: Current Medications Alprazolam (Xanax) 1 mg PO BID PRN; Protocol PRN Reason: Anxiety Stop: 08/01/17 19:03 Last Admin: 07/29/17 07:57 Dose: 1 mg Carvedilol (Coreg) 25 mg PO BID [facility] Last Admin: 07/31/17 10:23 Dose: 25 mg Diltiazem HCl (Cardizem Cd) 360 mg PO HS [facility] Last Admin: 07/30/17 21:23 Dose: 360 mg Metronidazole (Flagyl) 500 mg in 100 mls @ 100 mls/hr IVPB Q8 [facility] PRN Reason: Protocol Last Admin: 07/31/17 05:10 Dose: 100 mls/hr Ceftriaxone Sodium (Rocephin 1 Gram Ivpb (D5w)) 1 gm in 100 mls @ 100 mls/hr IVPB DAILY [facility] PRN Reason: Protocol Last Admin: 07/31/17 10:23 Dose: 100 mls/hr Morphine Sulfate (Morphine) 4 mg IVP Q4H PRN PRN Reason: Pain, moderate (4-7) Ondansetron HCl (Zofran Inj) 4 mg IVP Q4H PRN PRN Reason: Nausea/Vomiting Pantoprazole Sodium (Protonix Ec Tab) 40 mg PO DAILY [facility] Last Admin: 07/31/17 10:23 Dose: 40 mg Tramadol HCl (Ultram) 50 mg PO TID PRN PRN Reason: Pain, moderate (4-7) Last Admin: 07/29/17 11:33 Dose: 50 mg - Labs Labs: 07/30/17 07:00 07/31/17 06:00 PT 11.1 SECONDS (9.4-12.5) 07/29/17 05:00 INR 1.01 (0.93-1.08) 07/29/17 05:00 APTT 26.4 Seconds (25.1-36.5) 07/29/17 05:00 - Constitutional Appears: No Acute Distress - Head Exam Head Exam: NORMOCEPHALIC - Eye Exam Eye Exam: Normal appearance. absent: Scleral icterus - ENT Exam ENT Exam: Mucous Membranes Moist - Neck Exam Neck Exam: Normal Inspection - Respiratory Exam Respiratory Exam: NORMAL BREATHING PATTERN. absent: Respiratory Distress - Cardiovascular Exam Cardiovascular Exam: +S1, +S2 - GI/Abdominal Exam GI & Abdominal Exam: Soft, Normal Bowel Sounds. absent: Guarding, Tenderness, Rebound - Extremities Exam Extremities Exam: absent: Calf Tenderness, Pedal Edema - Neurological Exam Neurological Exam: Alert, Awake, Oriented x3 - Skin Skin Exam: Dry, Warm Assessment and Plan - Assessment and Plan (Free Text) Assessment: Assessment: Status post ERCP found biliary stricture, status post 7CM plastic stent and cytology brushing Possible Acute cholecystitis, GB nonvisualized, EUS , no GB wall thickening Esophageal ulcer Elevated LFTs, continue to improve Hypertension Coronary artery disease, status post open heart surgery Plan: Trend LFTs Follow-up cytology brushings continue PPI planned to be DC home today, discuss FU w/ PC, surgery, and our outpt office will need repeat egd in 2 months FU healing if ulcers recommend complete course a total of 10 days of antibiotics: Cipro/Flagyl/spoke to Brisa SIMMS. Seen and discussed w/ Dr. Peralta.
--- NOTE | 2017-08-01 00:35 | DS ---
HISTORY OF PRESENT ILLNESS: The patient is a 77-year-old who came to emergency room on on 07/25/2017 with right upper quadrant pain. She was having nausea and vomited few times prior to coming to the hospital. PAST MEDICAL HISTORY: Significant for: 1. Coronary artery disease, status post open heart surgery. 2. Hypertension. 3. Hyperlipidemia. 4. Chronic vertigo. 5. Anxiety disorder. ALLERGIES: SHE IS ALLERGIC TO AMLODIPINE. HOSPITAL COURSE: The patient was found to have nonfunctioning gallbladder upon HIDA scan. She had abnormal LFTs. MRCP was done that was unremarkable; however, she was evaluated by computer support technician and she was found to have biliary stricture where she had stent placed. After the stent was placed, her LFTs started to improve. After stent was placed, she started to feel better. She was pain free. She was started on liquid that was advanced. PHYSICAL EXAMINATION: GENERAL: Today on examination ;she is awake, alert, oriented, communicative, and anxious to go home. VITAL SIGNS: She is afebrile, pulse 54, respirations 18, and blood pressure 167/78. LUNGS: Bilateral fair airflow. No rhonchi or crackles. HEART: S1 and S2 audible. ABDOMEN: Soft and nontender. No rebound. No guarding. NEUROLOGIC: She is awake, alert, oriented, and communicative. LABORATORY DATA: WBC 5.5, hemoglobin 10, hematocrit 31, and platelets 131. Chemistries; sodium 140, potassium 3.5, chloride 110, CO2 of 22, BUN 6, creatinine 0.7, and blood sugar of 99. ASSESSMENT: 1. Right upper quadrant pain, probably cholecystitis that has resolved. 2. Biliary stricture, status post stent placement. 3. Coronary artery disease, status post open heart surgery. 4. Hypertension. 5. Hyperlipidemia. PLAN: The patient is being discharged home on Flagyl 500 t.i.d. and Cipro 500 b.i.d. for another week. She will resume her medications including Xanax, atorvastatin, Nexium, fenofibrate, valsartan, carvedilol, and diltiazem. She is going to need elective surgery for cholelithiasis. Shaq Lancaster MD
== END 2017-07-31 14:14 | disposition home or self-care (01) | DRG 445 ==
LOC: ED 08:24 → ERH 15:32 → MERGE 15:32 → ERH 16:21 → 3RNO 17:40 → OBSVTOIN 07-26 16:06
PROVIDERS: ADMIT Internal Medicine; ATTEND Internal Medicine
PROC: 0F798DZ Dilation of Common Bile Duct with Intraluminal Device, Via Natural or Artificial Opening Endoscopic (ICD-10-PCS; principal; 2017-07-29 14:00)
PROC: 0FB98ZX Excision of Common Bile Duct, Via Natural or Artificial Opening Endoscopic, Diagnostic (ICD-10-PCS; 2017-07-29 14:00)
PROC: 0DJ08ZZ Inspection of Upper Intestinal Tract, Via Natural or Artificial Opening Endoscopic (ICD-10-PCS; 2017-07-29 14:00)
PROC: BF43ZZZ Ultrasonography of Gallbladder and Bile Ducts (ICD-10-PCS; 2017-07-29 14:00)
PROC: BF47ZZZ Ultrasonography of Pancreas (ICD-10-PCS; 2017-07-29 14:00)
DX: K83.1 Obstruction of bile duct (principal); K81.0 Acute cholecystitis; I27.20 Pulmonary hypertension, unspecified; I08.1 Rheumatic disorders of both mitral and tricuspid valves; K29.50 Unspecified chronic gastritis without bleeding; K21.0 Gastro-esophageal reflux disease with esophagitis; K44.9 Diaphragmatic hernia without obstruction or gangrene; I25.10 Atherosclerotic heart disease of native coronary artery without angina pectoris; I10 Essential (primary) hypertension; E78.5 Hyperlipidemia, unspecified; F41.9 Anxiety disorder, unspecified; R42 Dizziness and giddiness; Z95.1 Presence of aortocoronary bypass graft

== ENCOUNTER 2017-10-25 09:47 | Inpatient (IN) | payer MEDICARE, MEDICAID ==
[2017-10-17 15:54] VITALS: BMI 27.6
[2017-10-25 10:25] LABS: BASO # 0.01 K/mm3 (0.0-2.0); BASO % 0.1 % (0.0-3.0); EOS # 0.2 (0.0-0.7); EOS % 3.5 % (1.5-5.0); GRAN # 5.07 (1.4-6.5); GRAN % 73.9 % (50.0-68.0); HEMOGLOBIN 11.8 g/dL (12.0-16.0); LYMPH # 1.2 (1.2-3.4); LYMPH % 17.6 % (22.0-35.0); MEAN CELL VOLUME 92.7 fl (80.0-105.0); MEAN CORPUSCULAR HEMOGLOBIN 30.6 pg (25.0-35.0); MEAN CORPUSCULAR HGB CONC 33.1 g/dl (31.0-37.0); MEAN PLATELET VOLUME 10.7 fl (7.0-11.0); MONO # 0.3 (0.1-0.6); MONO % 4.9 % (1.0-6.0); RBC 3.85 10^6/uL (3.5-6.1); RED CELL DISTRIBUTION WIDTH 13.7 % (11.5-14.5); WHITE BLOOD COUNT 6.9 10^3/ul (4.5-11.0)
[2017-10-25 10:37] LABS: ALB/GLOB RATIO 1.3 (1.1-1.8); ALBUMIN 4.2 g/dL (3.0-4.8); CALCIUM 10.6 mg/dL (8.4-10.5)
[2017-10-25 10:38] LABS: INR 1.01 (0.93-1.08); PARTIAL THROMBOPLASTIN TIME 24.4 Seconds (25.1-36.5); PROTHROMBIN TIME 11.6 SECONDS (9.4-12.5)
[2017-10-25] MEDS ORDERED: Glucagon Recombinant 1 mg Inj ONE (12:51)
[2017-10-25] MEDS ORDERED: Iohexol 240 (50 ml) ONE (12:51)
[2017-10-25] MEDS ORDERED: Indomethacin 50 MG Suppository PR ONE (12:52)
[2017-10-25] MEDS ORDERED: Propofol 10 mg/ml Inj (20 ML) ONE (13:09)
[2017-10-25] MEDS ORDERED: Midazolam 2 MG/2 ML VIAL ONE (13:10)
[2017-10-25] MEDS ORDERED: Rocuronium 10 mg/ml (5 ml) ONE (13:14)
[2017-10-25] MEDS ORDERED: cefTRIAXone (Rocephin) 1 gm Inj ONE (13:37)
[2017-10-25] MEDS ORDERED: Neostigmine Methylsulfate 3mg/3ml Syringe IV ONE (14:21)
[2017-10-25] MEDS ORDERED: Glycopyrrolate 0.2 mg/ml (2ml vial) ONE (14:22)
[2017-10-25] MEDS ORDERED: Sodium Chloride 0.9% 1,000 ML IV SCH (15:00)
[2017-10-26 08:55] LABS: HEMOGLOBIN 10.9 g/dL (12.0-16.0); MEAN CELL VOLUME 92.7 fl (80.0-105.0); MEAN CORPUSCULAR HEMOGLOBIN 30.4 pg (25.0-35.0); MEAN CORPUSCULAR HGB CONC 32.8 g/dl (31.0-37.0); MEAN PLATELET VOLUME 10.5 fl (7.0-11.0); RBC 3.58 10^6/uL (3.5-6.1); RED CELL DISTRIBUTION WIDTH 13.6 % (11.5-14.5); WHITE BLOOD COUNT 7.6 10^3/ul (4.5-11.0)
[2017-10-26 09:14] LABS: ALB/GLOB RATIO 1.2 (1.1-1.8); ALBUMIN 3.5 g/dL (3.0-4.8); ALT/SGPT 131 U/L (7-56); AMYLASE 67 U/L (35-125); AST/SGOT 222 U/L (14-36); BLOOD UREA NITROGEN 11 mg/dL (7-21); CALCIUM 9.4 mg/dL (8.4-10.5); GFR AFRICAN-AMERICAN > 60; GFR NON-AFRICAN AMERICAN > 60; LIPASE 220 U/L (23-300)
[2017-10-26] MEDS ORDERED: Sodium Chloride 0.9% 1,000 ML IV SCH (15:00)
--- NOTE | 2017-10-26 15:01 | CP.PCM.CON ---
History of Present Illness - History of Present Illness History of Present Illness: Surgery Consult note. Dr. Elias 77yo F with PMHx of HTN, Panic Attacks, HLD, Arthritis, Gastritis, Hiatal hernia , Esophagitis here s/p repeat ERCP. Patient had ERCP with CBD stent placed in Jul 2017. Patient had repeat ERCP yesterday with stent removal and sphincterotomy. This morning, patient has elevated Transaminases and total bilirubin. Surgery was consulted for gallbladder sludge. Patient states that she has very mild abd pain located in the RUQ. Denies any Nausea, vomiting or diarrhea. Tolerating soft, low fat diet. No fevers or chills. Denies noting any jaundice. Has been passing flatus. She does not want to have surgery. PMHx: HTN, Panic disorder, HLD, Arthritis, Gastritis, Hiatal hernia, Esophagitis PSHx: Cataracts, CABG, Left carpal tunnel release, cardiac stents Family Hx: Denies Social Hx: Denies tobacco, denies ETOH, denies illicit drugs. Allergy: Amlodipine-has palpitations Review of Systems - Review of Systems All systems: reviewed and no additional remarkable complaints except - Constitutional Constitutional: absent: Chills, Fever - Cardiovascular Cardiovascular: absent: Chest Pain, Dyspnea - Respiratory Respiratory: absent: Cough, Dyspnea - Gastrointestinal Gastrointestinal: Abdominal Pain. absent: Diarrhea, Dyspepsia, Nausea, Vomiting - Genitourinary Genitourinary: absent: Dysuria - Neurological Neurological: absent: Headaches Past Patient History - Infectious Disease Hx of Infectious Diseases: None - Past Social History Smoking Status: Never Smoked - CARDIAC Hx Pacemaker: No - PULMONARY Hx Respiratory Disorders: No - NEUROLOGICAL Hx Neurological Disorder: Yes Hx Dizziness: Yes - HEENT Hx HEENT Problems: Yes Other/Comment: b/l eye sx - RENAL Hx Chronic Kidney Disease: No - ENDOCRINE/METABOLIC Hx Endocrine Disorders: No - HEMATOLOGICAL/ONCOLOGICAL Hx Blood Disorders: No - INTEGUMENTARY Hx Dermatological Problems: No - MUSCULOSKELETAL/RHEUMATOLOGICAL Hx Musculoskeletal Disorders: Yes Hx Falls: No - GASTROINTESTINAL Hx Gastrointestinal Disorders: No - GENITOURINARY/GYNECOLOGICAL Hx Genitourinary Disorders: No - PSYCHIATRIC Hx Psychophysiologic Disorder: Yes Hx Anxiety: Yes Hx Panic Symptoms: Yes ("once in a while") - SURGICAL HISTORY Hx Surgeries: Yes (CABG & CARDIAC STENT 10 YRS AGO ) - ANESTHESIA Hx Anesthesia Reactions: No Hx Malignant Hyperthermia: No Meds Allergies/Adverse Reactions: Allergies Allergy/AdvReac Type Severity Reaction Status Date / Time amlodipine [From [facility]] AdvReac NAUSEA Verified 10/26/17 06:24 - Medications Medications: Current Medications Acetaminophen (Tylenol 325mg Tab) 650 mg PO Q6H PRN PRN Reason: Pain, moderate (4-7) Last Admin: 10/25/17 21:27 Dose: 650 mg Sodium Chloride (Sodium Chloride 0.9%) 1,000 mls @ 50 mls/hr IV .Q20H [facility] Ursodiol (Actigall) 300 mg PO Q8 [facility] Physical Exam - Constitutional Appears: Well, Non-toxic, No Acute Distress Additional comments: sitting up in chair. Comfortable - Head Exam Head Exam: ATRAUMATIC, NORMAL INSPECTION, NORMOCEPHALIC - Eye Exam Eye Exam: EOMI, Scleral icterus (Mild scleral icterus) - ENT Exam ENT Exam: Mucous Membranes Moist - Respiratory Exam Respiratory Exam: NORMAL BREATHING PATTERN. absent: Accessory Muscle Use, Respiratory Distress - Cardiovascular Exam Cardiovascular Exam: absent: JVD - GI/Abdominal Exam GI & Abdominal Exam: Soft, Tenderness (very mild RUQ tenderness upon deep palpation. ). absent: Distended, Firm, Guarding, Rigid Additional comments: No Lopez's. No Rebound. No guarding - Extremities Exam Extremities exam: Positive for: normal inspection. Negative for: calf tenderness - Neurological Exam Neurological exam: Alert, Oriented x3 - Psychiatric Exam Psychiatric exam: Normal Affect, Normal Mood - Skin Skin Exam: Dry, Intact, Normal Color, Warm Results - Vital Signs Recent Vital Signs: Last Vital Signs Temp 98.1 F 10/26/17 07:00 Pulse 63 10/26/17 07:00 Resp 20 10/26/17 07:00 BP 154/66 H 10/26/17 07:00 Pulse Ox 95 10/26/17 07:00 - Labs Result Diagrams: 10/26/17 08:49 10/26/17 08:49 Labs: Laboratory Results - last 24 hr 10/26/17 10/26/17 08:49 08:49 WBC 7.6 RBC 3.58 Hgb 10.9 L Hct 33.2 L MCV 92.7 MCH 30.4 MCHC 32.8 RDW 13.6 Plt Count 134 MPV 10.5 Sodium 138 Potassium 3.7 Chloride 104 Carbon Dioxide 22 Anion Gap 16 BUN 11 Creatinine 0.9 Est GFR ( Amer) > 60 Est GFR (Non-Af Amer) > 60 Random Glucose 107 Calcium 9.4 Total Bilirubin 2.8 H AST 222 H D ALT 131 H Alkaline Phosphatase 33 L D Total Protein 6.5 Albumin 3.5 Globulin 3.0 Albumin/Globulin Ratio 1.2 Amylase 67 Lipase 220 Assessment & Plan - Assessment and Plan (Free Text) Assessment: 77yo F with gallbladder sludge. S/P ERCP sphincterotomy and stent removal by GI on 10/25/17 - Elevated transaminases noted - Hyperbilirubinemia noted - CBD brushings cytology negative 07/29/17 Plan: - serial abd exams - continue low-fat soft diet as tolerated - f/u repeat AM labs - At this time, patient does not want to undergo surgery. We will f/u repeat labs and again discuss with the patient for the possibility of surgery if her clinical status worsens. - We will follow Further recs as per Dr. Curt Ortega PGY1 surgery pager: [phone]
--- NOTE | 2017-10-26 22:08 | HP ---
HISTORY OF PRESENT ILLNESS: Ms. Trinidad is a 77-year-old female. The patient had ERCP yesterday with stent removal and sphincterotomy. Transaminases and bilirubin were elevated. She is being admitted to the hospital for hyperbilirubinemia. No fever. No cough with expectoration. PAST MEDICAL HISTORY: Hypertension, panic disorder, hiatal hernia, esophagitis, gastritis. PAST SURGICAL HISTORY: Cataract and CABG. FAMILY HISTORY: Noncontributory. SOCIAL HISTORY: No history of alcohol abuse or smoking. ALLERGIES: AMLODIPINE CAUSES PALPITATION. REVIEW OF SYSTEMS: As per HPI. Rest of 12-point review of systems reviewed and negative. PHYSICAL EXAMINATION: GENERAL: Comfortable in chair, in no acute distress. VITAL SIGNS: Temperature 98.1, heart rate is 63 per minute, respiratory rate is 20 per minute, blood pressure 150/66, and pulse ox is 95%. HEENT: No pallor. CHEST: Air entry present and equal bilaterally. No added sounds. CARDIOVASCULAR: S1 and S2 normal. No murmur. No gallop. ABDOMEN: Soft, nontender. No hepatosplenomegaly. EXTREMITIES: No edema. CENTRAL NERVOUS SYSTEM: Alert and oriented x3. No focal sensory or motor deficits. LABORATORY DATA: White count 7.6, hemoglobin 10.9, hematocrit 32.2, and platelets 134. Sodium 138, potassium 3.7, BUN 11, creatinine 0.7, and glucose 107. ASSESSMENT: 1. Hyperbilirubinemia. 2. Status post endoscopic retrograde cholangiopancreatography, sphincterectomy, and stent removal. 3. Transaminitis. 4. Osteoarthritis. 5. Gastritis. PLAN: She will be admitted to the hospital. We will monitor the bilirubin. Cytology: CBD negative for malignancy. The patient denied surgery, evaluated by Dr. Elias's service. Gastroenterology, Dr. Peralta was consulted. We will continue home medications of Coreg 25 b.i.d., diltiazem 240 mg daily, fenofibrate 145 daily, meclizine one tablet p.o. b.i.d., valsartan/hydrochlorothiazide one tablet daily, aspirin 81 mg daily, and Xanax one tablet p.o. b.i.d. Ailyn Isidro, MD MTDKalyani
[2017-10-27 07:08] LABS: BASO # 0.01 K/mm3 (0.0-2.0); BASO % 0.2 % (0.0-3.0); EOS # 0.2 (0.0-0.7); EOS % 4.7 % (1.5-5.0); GRAN # 2.67 (1.4-6.5); GRAN % 62.4 % (50.0-68.0); HEMOGLOBIN 10.5 g/dL (12.0-16.0); LYMPH % 23.6 % (22.0-35.0); MEAN CELL VOLUME 92.2 fl (80.0-105.0); MEAN CORPUSCULAR HEMOGLOBIN 30.4 pg (25.0-35.0); MEAN PLATELET VOLUME 10.9 fl (7.0-11.0); MONO # 0.4 (0.1-0.6); MONO % 9.1 % (1.0-6.0); RBC 3.45 10^6/uL (3.5-6.1); RED CELL DISTRIBUTION WIDTH 13.5 % (11.5-14.5); WHITE BLOOD COUNT 4.3 10^3/ul (4.5-11.0)
[2017-10-27 07:14] LABS: INR 1.09 (0.93-1.08); PARTIAL THROMBOPLASTIN TIME 25.3 Seconds (25.1-36.5); PROTHROMBIN TIME 12.5 SECONDS (9.4-12.5)
[2017-10-27 07:36] LABS: ALB/GLOB RATIO 1.1 (1.1-1.8); ALBUMIN 3.2 g/dL (3.0-4.8); ALT/SGPT 231 U/L (7-56); AST/SGOT 324 U/L (14-36); BILIRUBIN,DIRECT 2.9 mg/dL (0.0-0.4); BLOOD UREA NITROGEN 9 mg/dL (7-21); CALCIUM 9.9 mg/dL (8.4-10.5); GFR AFRICAN-AMERICAN > 60; GFR NON-AFRICAN AMERICAN > 60; LIPASE 303 U/L (23-300)
--- NOTE | 2017-10-27 09:40 | CP.PCM.PN ---
Subjective - Date & Time of Evaluation Date of Evaluation: 10/27/17 Time of Evaluation: 09:38 - Subjective Subjective: Surgery: Dr. Elias Patient denies any abdominal pain, tolerating diet. Denies n/v/f/c. Requesting to go home. Objective - Vital Signs/Intake and Output Vital Signs (last 24 hours): Temp Pulse Resp BP Pulse Ox 98.6 F 62 19 165/84 H 96 10/27/17 07:53 10/27/17 07:53 10/27/17 07:53 10/27/17 07:53 10/27/17 07:53 Intake and Output: 10/27/17 10/27/17 06:59 18:59 Intake Total 790 Output Total 0 Balance 790 - Medications Medications: Current Medications Acetaminophen (Tylenol 325mg Tab) 650 mg PO Q6H PRN PRN Reason: Pain, moderate (4-7) Last Admin: 10/25/17 21:27 Dose: 650 mg Sodium Chloride (Sodium Chloride 0.9%) 1,000 mls @ 50 mls/hr IV .Q20H [facility] Last Admin: 10/27/17 06:30 Dose: 50 mls/hr Ursodiol (Actigall) 300 mg PO Q8 [facility] Last Admin: 10/27/17 06:25 Dose: 300 mg - Labs Labs: 10/27/17 06:30 10/27/17 06:30 PT 12.5 SECONDS (9.4-12.5) 10/27/17 06:30 INR 1.09 (0.93-1.08) H 10/27/17 06:30 APTT 25.3 Seconds (25.1-36.5) 10/27/17 06:30 - Constitutional Appears: Non-toxic, No Acute Distress - Head Exam Head Exam: ATRAUMATIC, NORMOCEPHALIC - Eye Exam Eye Exam: EOMI, Normal appearance, Scleral icterus (mild ) - ENT Exam ENT Exam: Mucous Membranes Moist - Respiratory Exam Respiratory Exam: NORMAL BREATHING PATTERN. absent: Respiratory Distress - Cardiovascular Exam Cardiovascular Exam: Tachycardia, REGULAR RHYTHM - GI/Abdominal Exam GI & Abdominal Exam: Soft. absent: Distended, Guarding, Tenderness, Rebound - Neurological Exam Neurological Exam: Alert, Awake - Psychiatric Exam Psychiatric exam: Normal Affect, Normal Mood - Skin Skin Exam: Dry, Normal Color, Warm Assessment and Plan - Assessment and Plan (Free Text) Assessment: 77 y/o female with transminitis s/p ERCP w/ sphincterotomy Plan: -asymptomatic -recommend u/s -bili increased today, repeat CMP in am -pending u/s results determine surgical intervention, at this time patient prefers nonsurgical treatment -further recs per Dr. Curt Don PGY3
--- NOTE | 2017-10-27 14:57 | CARD ---
APPROVED REPORT EKG Measurement Heart [id number] <Conclusion> Sinus bradycardia Minimal voltage criteria for LVH, may be normal variant Cannot rule out Anterior infarct, age undetermined Abnormal ECG
--- NOTE | 2017-10-27 15:25 | US ---
HISTORY: RUQ abd pain, GB sludge COMPARISON: None. TECHNIQUE: Sonographic evaluation of the abdomen. FINDINGS: LIVER: Measures 14.4 cm. There is diffuse increased echogenicity of the liver parenchyma. No mass. No intrahepatic bile duct dilatation. GALLBLADDER: There are multiple gallstones, mild gallbladder well thickening without pericholecystic fluid or positive sonographic Lopez's sign. . COMMON BILE DUCT: Measures 8.4 mm. No stones. No dilatation. PANCREAS: Unremarkable as visualized. No mass. No ductal dilatation. RIGHT KIDNEY: Measures 10.9cm. Normal echogenicity. No calculus, mass, or hydronephrosis. There is a 2.2 cm simple cyst in the upper pole and a 1.9 cm simple cyst in the lower pole. LEFT KIDNEY: Measures 10.1cm. Normal echogenicity. No calculus, mass, or hydronephrosis. There a few simple cysts, the largest parapelvic cyst measures 1.9 cm. SPLEEN: Normal in size and contour. No mass. AORTA: No aneurysmal dilatation. IVC: Unremarkable. OTHER FINDINGS: None. IMPRESSION: Fatty liver. Cholelithiasis. Simple cysts in both kidneys.
--- NOTE | 2017-10-27 18:17 | CP.PCM.PN ---
Subjective - Date & Time of Evaluation Date of Evaluation: 10/27/17 Time of Evaluation: 11:00 - Subjective Subjective: 10/27/2017 SUBJECTIVE: Ms. Trinidad is a 77-year-old female. The patient had ERCP yesterday with stent removal and sphincterotomy. Transaminases and bilirubin were elevated. She is being admitted to the hospital for hyperbilirubinemia. No fever. No cough with expectoration. Bilurubin increased, liver enzymes increased compared to yesterday. No abdominal pain. PAST MEDICAL HISTORY: Hypertension, panic disorder, hiatal hernia, esophagitis, gastritis. PAST SURGICAL HISTORY: Cataract and CABG. FAMILY HISTORY: Noncontributory. SOCIAL HISTORY: No history of alcohol abuse or smoking. ALLERGIES: AMLODIPINE CAUSES PALPITATION. REVIEW OF SYSTEMS: As per HPI. Rest of 12-point review of systems reviewed and negative. PHYSICAL EXAMINATION: GENERAL: Comfortable in chair, in no acute distress. VITAL SIGNS: reviewed. HEENT: No pallor. CHEST: Air entry present and equal bilaterally. No added sounds. CARDIOVASCULAR: S1 and S2 normal. No murmur. No gallop. ABDOMEN: Soft, nontender. No hepatosplenomegaly. EXTREMITIES: No edema. CENTRAL NERVOUS SYSTEM: Alert and oriented x3. No focal sensory or motor deficits. LABORATORY DATA: reviewed. ASSESSMENT: 1. Hyperbilirubinemia. 2. Status post endoscopic retrograde cholangiopancreatography, sphincterectomy, and stent removal. 3. Transaminitis. 4. Osteoarthritis. 5. Gastritis. PLAN: Liver functions deteriorated. We will monitor the bilirubin. Cytology: CBD negative for malignancy. The patient denied surgery, evaluated by Dr. Elias's service. Gastroenterology, Dr. Peralta was consulted. We will continue home medications of Coreg 25 b.i.d., diltiazem 240 mg daily, fenofibrate 145 daily, meclizine one tablet p.o. b.i.d., valsartan/hydrochlorothiazide one tablet daily, aspirin 81 mg daily, and Xanax one tablet p.o. b.i.d. No pain. labs ordered for tomorrow. Ailyn Felix MD Objective - Vital Signs/Intake and Output Vital Signs (last 24 hours): Temp Pulse Resp BP Pulse Ox 98.1 F 92 H 18 103/92 H 96 10/27/17 16:00 10/27/17 16:00 10/27/17 16:00 10/27/17 16:00 10/27/17 16:00 Intake and Output: 10/27/17 10/27/17 06:59 18:59 Intake Total 790 Output Total 0 Balance 790 - Medications Medications: Current Medications Acetaminophen (Tylenol 325mg Tab) 650 mg PO Q6H PRN PRN Reason: Pain, moderate (4-7) Last Admin: 10/27/17 15:50 Dose: 650 mg Alprazolam (Xanax) 0.25 mg PO BID PRN; Protocol PRN Reason: Anxiety Stop: 11/03/17 18:01 Last Admin: 10/27/17 17:21 Dose: 0.25 mg Alprazolam (Xanax) 0.5 mg PO ONCE ONE PRN Reason: Protocol Stop: 10/28/17 07:31 Hydrochlorothiazide (Microzide) 12.5 mg PO DAILY [facility] Ursodiol (Actigall) 300 mg PO Q8 [facility] Last Admin: 10/27/17 13:38 Dose: 300 mg Valsartan (Diovan) 320 mg PO DAILY [facility] - Labs Labs: 10/27/17 06:30 10/27/17 06:30 PT 12.5 SECONDS (9.4-12.5) 10/27/17 06:30 INR 1.09 (0.93-1.08) H 10/27/17 06:30 APTT 25.3 Seconds (25.1-36.5) 10/27/17 06:30
--- NOTE | 2017-10-27 23:46 | CP.PCM.PN ---
Subjective - Date & Time of Evaluation Date of Evaluation: 10/27/17 Time of Evaluation: 23:38 - Subjective Subjective: Patient was seen at bedside. Because her blood pressure was 219/95, 210/98 manually. States that she had headache earlier, not anymore. Feels nervous. Has some heart burn. Has no other complaints. Denies chest pain, sob, nausea, sweating , palpitations. She is S/P ERCP, sphincterotomy. Medical record was reviewed. This 77 year old woman was admitted after she had ERCP , stent removal and sphincterotomy. Has PMH of CAD,HTN, HLD,CABG, esophagitis, anxiety, arthritis, gastritis, hiatus hernia, chronic vertigo,biliary stricture, S/P stent placement, cataract surgery, panic attacks, left carpal tunnel release, coronary stent. Objective - Vital Signs/Intake and Output Vital Signs (last 24 hours): Temp Pulse Resp BP Pulse Ox 98.1 F 92 H 18 196/83 H 96 10/27/17 16:00 10/27/17 16:00 10/27/17 16:00 10/27/17 18:42 10/27/17 16:00 - Medications Medications: Current Medications Acetaminophen (Tylenol 325mg Tab) 650 mg PO Q6H PRN PRN Reason: Pain, moderate (4-7) Last Admin: 10/27/17 21:13 Dose: 650 mg Alprazolam (Xanax) 0.25 mg PO BID PRN; Protocol PRN Reason: Anxiety Stop: 11/03/17 18:01 Last Admin: 10/27/17 17:21 Dose: 0.25 mg Alprazolam (Xanax) 0.5 mg PO ONCE ONE PRN Reason: Protocol Stop: 10/28/17 07:31 Hydrochlorothiazide (Microzide) 12.5 mg PO DAILY [facility] Ursodiol (Actigall) 300 mg PO Q8 [facility] Last Admin: 10/27/17 21:14 Dose: 300 mg Valsartan (Diovan) 320 mg PO DAILY [facility] - Labs Labs: 10/27/17 06:30 10/27/17 06:30 PT 12.5 SECONDS (9.4-12.5) 10/27/17 06:30 INR 1.09 (0.93-1.08) H 10/27/17 06:30 APTT 25.3 Seconds (25.1-36.5) 10/27/17 06:30 - Constitutional Appears: Well, No Acute Distress - Head Exam Head Exam: ATRAUMATIC, NORMAL INSPECTION, NORMOCEPHALIC - Eye Exam Eye Exam: Normal appearance - ENT Exam ENT Exam: Normal External Ear Exam - Neck Exam Neck Exam: Normal Inspection - Respiratory Exam Respiratory Exam: NORMAL BREATHING PATTERN - Cardiovascular Exam Cardiovascular Exam: absent: JVD - GI/Abdominal Exam GI & Abdominal Exam: absent: Distended - Rectal Exam Rectal Exam: Deferred - Exam Additional comments: Deferred. - Extremities Exam Extremities Exam: Normal Inspection - Back Exam Back Exam: NORMAL INSPECTION - Neurological Exam Neurological Exam: Alert, Awake, Oriented x3 - Psychiatric Exam Psychiatric exam: Normal Affect, Normal Mood - Skin Skin Exam: Normal Color Assessment and Plan - Assessment and Plan (Free Text) Assessment: Elevated blood pressure reading. HTN. Anxiety. Heart burn. CAD. HLD. S/P ERCP, stent removal , sphincterotomy. Plan: Clonidine 0.2 mg PO x 1. Xanax 0.5 mg PO x1. Protonix 40 mg PO x 1. Continue present management.
[2017-10-27] MEDS ORDERED: Pantoprazole 40 mg EC Tab PO STA (23:47)
[2017-10-28 06:49] LABS: BASO # 0.01 K/mm3 (0.0-2.0); BASO % 0.2 % (0.0-3.0); EOS # 0.2 (0.0-0.7); EOS % 4.6 % (1.5-5.0); GRAN # 2.57 (1.4-6.5); GRAN % 59.1 % (50.0-68.0); HEMOGLOBIN 10.4 g/dL (12.0-16.0); LYMPH # 1.1 (1.2-3.4); MEAN CELL VOLUME 91.2 fl (80.0-105.0); MEAN CORPUSCULAR HEMOGLOBIN 30.4 pg (25.0-35.0); MEAN CORPUSCULAR HGB CONC 33.3 g/dl (31.0-37.0); MEAN PLATELET VOLUME 10.5 fl (7.0-11.0); MONO # 0.4 (0.1-0.6); MONO % 10.1 % (1.0-6.0); RBC 3.42 10^6/uL (3.5-6.1); RED CELL DISTRIBUTION WIDTH 13.4 % (11.5-14.5); WHITE BLOOD COUNT 4.4 10^3/ul (4.5-11.0)
[2017-10-28 07:27] LABS: ALB/GLOB RATIO 1.1 (1.1-1.8); ALBUMIN 3.5 g/dL (3.0-4.8); ALT/SGPT 236 U/L (7-56); AST/SGOT 255 U/L (14-36); BLOOD UREA NITROGEN 10 mg/dL (7-21); CALCIUM 10.5 mg/dL (8.4-10.5); GFR AFRICAN-AMERICAN > 60; GFR NON-AFRICAN AMERICAN > 60
--- NOTE | 2017-10-28 07:47 | CP.PCM.PN ---
Subjective - Date & Time of Evaluation Date of Evaluation: 10/28/17 Time of Evaluation: 07:00 - Subjective Subjective: Patient seen and examined this AM. Patient denies any nausea, vomiting, abdominal pain, or any other symptoms. No adverse events overnight Objective - Vital Signs/Intake and Output Vital Signs (last 24 hours): Temp Pulse Resp BP Pulse Ox 97.4 F L 47 L 18 173/75 H 98 10/28/17 07:45 10/28/17 07:45 10/28/17 07:45 10/28/17 07:45 10/28/17 07:45 Intake and Output: 10/28/17 10/28/17 06:59 18:59 Intake Total 180 Balance 180 - Medications Medications: Current Medications Acetaminophen (Tylenol 325mg Tab) 650 mg PO Q6H PRN PRN Reason: Pain, moderate (4-7) Last Admin: 10/27/17 21:13 Dose: 650 mg Alprazolam (Xanax) 0.25 mg PO BID PRN; Protocol PRN Reason: Anxiety Stop: 11/03/17 18:01 Last Admin: 10/27/17 17:21 Dose: 0.25 mg Hydrochlorothiazide (Microzide) 12.5 mg PO DAILY [facility] Ursodiol (Actigall) 300 mg PO Q8 [facility] Last Admin: 10/28/17 05:23 Dose: Not Given Valsartan (Diovan) 320 mg PO DAILY [facility] - Labs Labs: 10/28/17 06:20 10/28/17 06:20 PT 12.5 SECONDS (9.4-12.5) 10/27/17 06:30 INR 1.09 (0.93-1.08) H 10/27/17 06:30 APTT 25.3 Seconds (25.1-36.5) 10/27/17 06:30 - Constitutional Appears: Well, Non-toxic, No Acute Distress - Head Exam Head Exam: ATRAUMATIC, NORMOCEPHALIC - Eye Exam Eye Exam: Normal appearance. absent: Conjunctival injection, Scleral icterus - ENT Exam ENT Exam: Mucous Membranes Moist, Normal Oropharynx - Respiratory Exam Respiratory Exam: NORMAL BREATHING PATTERN. absent: Accessory Muscle Use, Respiratory Distress - GI/Abdominal Exam GI & Abdominal Exam: Soft. absent: Distended, Guarding, Tenderness, Rebound - Extremities Exam Extremities Exam: absent: Calf Tenderness, Pedal Edema, Tenderness - Neurological Exam Neurological Exam: Alert, Awake, Oriented x3 - Psychiatric Exam Psychiatric exam: Normal Affect, Normal Mood - Skin Skin Exam: Dry, Intact, Normal Color, Warm Assessment and Plan - Assessment and Plan (Free Text) Assessment: 77 y/o female with transminitis s/p ERCP and sphincterotomy T. Bili trending down. Abd us 10/27: wall thickening, gallstones, no pericholecystic fluid--not indicative of acute cholecystitis Plan: -No surgical intervention at this time--low suspicion of acute cholecystitis despite cholelithiasis. Patient would prefer non-surgical treatment at this time. Patient may be referred to Dr. Elias's office as an outpt for further discussion of elective cholecystectomy -Continue to trend CMP -PRN pain or nausea medication -Continue diet as tolerated Further recs per Dr. Curt Uriarte, PGY2
--- NOTE | 2017-10-28 09:27 | RAD ---
PROCEDURE: ERCP HISTORY: CBD OBST. / W/SPHINCTEROTOMY BALLOON SWEEP COMPARISON: TECHNIQUE: Fluoroscopy was provided in the endoscopy suite. 118 seconds of fluoro time were used. 7 images submitted FINDINGS: The study shows passage of a balloon catheter through the common duct IMPRESSION: As above
--- NOTE | 2017-10-29 02:45 | PN ---
DATE: SUBJECTIVE: This patient was seen and evaluated earlier, tolerating her diet. No complaints of any abdominal pain. PHYSICAL EXAMINATION: VITAL SIGNS: Temperature is 98.2, pulse 51, blood pressure 148/84. HEENT: Atraumatic, anicteric. NECK: Supple. LUNGS: Bilateral air entry present. ABDOMEN: Soft. There was a ventral hernia present. EXTREMITIES: No cyanosis. No clubbing. LABORATORY DATA: Hemoglobin 10.4, hematocrit 31.2, WBC 4.4, platelets 122. BUN 10, creatinine 0.8. Patient was found to have elevated LFTs post ERCP, otherwise unremarkable. Bilirubin was normal when the patient was admitted, and post procedure slowly appeared to have increasing in bilirubin. It was 0.7 initially, it went up to 3.1. It is now showing a downward trend. The LFTs also, even the transaminases showing a downward trend. IMPRESSION: This 77-year-old patient has elevated liver function tests, status post endoscopic retrograde cholangiopancreatography, history of gallstones, now shows downward trend. ERCP, common bile duct appears to be with no filling defect, with the balloon sweep, it was negative. The sphincterectomy is also widened. The etiology of the LFTs' elevation post procedure is unclear. One of the possibilities to be considered is further passage of the stone from the gallbladder into the bile duct. Since the patient has had good sphincterotomy, smaller stones should be able to pass through. RECOMMENDATION: Follow up of the LFTs. If the LFTs remain elevated or it shows an upward trend, we will consider ERCP. I discussed with the patient who refused to go for MRCP. Thank you very much for allowing us to participate in the care of the patient. Madeline Peralta MD
[2017-10-29 06:51] LABS: BASO # 0.01 K/mm3 (0.0-2.0); BASO % 0.2 % (0.0-3.0); EOS # 0.3 (0.0-0.7); GRAN # 2.27 (1.4-6.5); GRAN % 50.8 % (50.0-68.0); HEMOGLOBIN 10.7 g/dL (12.0-16.0); LYMPH # 1.4 (1.2-3.4); LYMPH % 31.1 % (22.0-35.0); MEAN CELL VOLUME 90.7 fl (80.0-105.0); MEAN CORPUSCULAR HEMOGLOBIN 30.3 pg (25.0-35.0); MEAN CORPUSCULAR HGB CONC 33.4 g/dl (31.0-37.0); MEAN PLATELET VOLUME 10.7 fl (7.0-11.0); MONO # 0.5 (0.1-0.6); MONO % 11.9 % (1.0-6.0); RBC 3.53 10^6/uL (3.5-6.1); RED CELL DISTRIBUTION WIDTH 13.6 % (11.5-14.5); WHITE BLOOD COUNT 4.5 10^3/ul (4.5-11.0)
[2017-10-29 07:49] LABS: ALB/GLOB RATIO 1.1 (1.1-1.8); ALBUMIN 3.4 g/dL (3.0-4.8); ALT/SGPT 189 U/L (7-56); AMYLASE 63 U/L (35-125); AST/SGOT 141 U/L (14-36); BLOOD UREA NITROGEN 13 mg/dL (7-21); CALCIUM 10.4 mg/dL (8.4-10.5); GFR AFRICAN-AMERICAN > 60; GFR NON-AFRICAN AMERICAN > 60; LIPASE 307 U/L (23-300)
[2017-10-29 09:09] VITALS: BP 145/80; PULSE 70; RESP 18; TEMP 98.1; O2SAT 96
--- NOTE | 2017-10-29 09:12 | DS ---
HISTORY OF PRESENT ILLNESS: The patient is 77 years old, who has brought in by , was admitted for removal of stent and sphincterotomy. The patient currently has no complaints. No nausea or vomiting. Eating and tolerating. Post procedure, her AST and ALT went up, so she was admitted for close monitoring. Denies any fever or chills. No nausea or vomiting. No diarrhea. PAST MEDICAL HISTORY: She has significant past medical history of, 1. Hypertension. 2. Open heart surgery many many years ago. 3. History of gastritis and esophagitis. ALLERGIES: SHE IS ALLERGIC TO AMLODIPINE, THAT CAUSES PALPITATION. PHYSICAL EXAMINATION: GENERAL: Today, she is awake, alert, oriented, communicative. VITAL SIGNS: She is afebrile, pulse 47, respirations 18, blood pressure 173/75. LUNGS: Bilateral good air flow. No rhonchi or crackles. HEART: S1 and S2 audible. ABDOMEN: Soft, nontender, no rebound, no guarding. NEUROLOGIC: The patient is awake and alert, able to communicate, ambulatory. LABORATORY DATA: WBC 4.4, hemoglobin 10.4, hematocrit 31.2, platelets 122. Chemistry: Sodium 143, potassium 3.7, chloride 106, CO2 of 26, BUN 10, creatinine 0.8, blood sugar of 117. Total bilirubin is 2.2, AST 255, ALT 236. Lipase 387. ASSESSMENT: 1. Status post endoscopic retrograde cholangio-pancreatography, stent removal and sphincterotomy. 2. Hypertension. 3. Hyperlipidemia. 4. Coronary artery disease status post open heart surgery. 5. Cholelithiasis. PLAN: The patient's diet had been advanced. We will continue to monitor her LFTs as outpatient. The patient is clinically stable, eating and tolerating food and can be discharged if okay with Dr. Peralta. The patient is currently on Actigall. She will resume all her medication as prior to admission. Shaq Lancaster MD
--- NOTE | 2017-10-29 09:32 | CON ---
DATE: HISTORY OF PRESENT ILLNESS: Brandie Trinidad was known from the prior admission. The patient was treated with and stent placed by Dr. Peralta, that stent was removed several days ago. There is not residual common duct stones; although, there was some prior sludge. The patient was never known to have stones; however, repeat ultrasound shows multiple stones, certainly consistent with the presentation. PHYSICAL EXAMINATION VITAL SIGNS: He is afebrile. Vital signs are normal, somewhat hypertensive up to 210 . LABORATORY DATA: White count and hemoglobin are stable and normal. Coagulation is normal. Bilirubin is 2.2 down from 3.1. AST and ALT are stable in the 250 range. Lipase somewhat elevated. Amylase normal. The pain is mostly resolved. The abdomen is soft and nontender. The patient apparently had common duct stone secondary to gallbladder disease. I have offered her a cholecystectomy laparoscopically as a point of election during this admission as I believe that would be the standard. The patient declined and wants to go home. I planned to see him in my office once stable in a couple of weeks to plan elective cholecystectomy, which is certainly indicated. Ben Elias MD
--- NOTE | 2017-10-30 14:47 | DS ---
HISTORY OF PRESENT ILLNESS: The patient is a 77 years old, seen and examined, sitting in chair, seems to be comfortable, was brought in to remove the stent. Her stent removed and sphincterectomy done. Post-procedure, the patient's LFTs were abnormal, so she was watched for 2-3 days while eating and tolerating. PHYSICAL EXAMINATION: VITAL SIGNS: She is afebrile, pulse 70, respirations 18, blood pressure 145/80. LUNGS: Bilateral good airflow. No rhonchi or crackle. HEART: S1 and S2 audible. ABDOMEN: Soft, obese, nontender. No rebound. No guarding. NEUROLOGICAL: The patient is awake, alert, oriented, and communicative. LABORATORY DATA: WBC 4.5, hemoglobin 10.7, hematocrit 32, platelets 136. Chemistry: Sodium 139, potassium 3.6, chloride 102, CO2 of 27, BUN 13, creatinine 0.9, blood sugar 101. LFTs: AST shows 141, ALT 189, alkaline phosphatase is normal. ASSESSMENT: 1. Cholelithiasis. 2. Status post endoscopic retrograde cholangiopancreatography, sphincterectomy, and stent removal. 3. Hypertension. 4. Coronary artery disease. 5. Hyperlipidemia. PLAN: The patient's statin is on hold. She is being discharged on Actigall 300 mg twice a day. She will continue aspirin, meclizine, valsartan, and Xanax. She was advised to hold off on her statins and she will continue Coreg 3.125 twice a day, Actigall 300 mg q.12, Xanax 1 tablet twice a day, Nexium 40 mg daily, and valsartan 320/12.5 mg daily and she will follow up with Dr. Peralta and myself as outpatient. Shaq Lancaster MD
== END 2017-10-29 15:25 | disposition home or self-care (01) | DRG 445 ==
LOC: ENDO 09:47 → 5RNO 17:25 → ENDO 10-26 14:28
PROVIDERS: ADMIT Internal Medicine Gastroenterology; ATTEND Internal Medicine Gastroenterology
PROC: 0FC98ZZ Extirpation of Matter from Common Bile Duct, Via Natural or Artificial Opening Endoscopic (ICD-10-PCS; principal; 2017-10-25 11:00)
PROC: 0DB58ZX Excision of Esophagus, Via Natural or Artificial Opening Endoscopic, Diagnostic (ICD-10-PCS; 2017-10-25 11:00)
PROC: BD47ZZZ Ultrasonography of Gastrointestinal Tract (ICD-10-PCS; 2017-10-25 11:00)
DX: K80.70 Calculus of gallbladder and bile duct without cholecystitis without obstruction (principal); K22.10 Ulcer of esophagus without bleeding; E78.5 Hyperlipidemia, unspecified; I10 Essential (primary) hypertension; I25.10 Atherosclerotic heart disease of native coronary artery without angina pectoris; F41.0 Panic disorder [episodic paroxysmal anxiety]; M19.90 Unspecified osteoarthritis, unspecified site; Z95.1 Presence of aortocoronary bypass graft; Z95.5 Presence of coronary angioplasty implant and graft; Z88.8 Allergy status to other drugs, medicaments and biological substances; K44.9 Diaphragmatic hernia without obstruction or gangrene; Z98.49 Cataract extraction status, unspecified eye; R74.0 Nonspecific elevation of levels of transaminase and lactic acid dehydrogenase [LDH]; K22.70 Barrett's esophagus without dysplasia; K29.50 Unspecified chronic gastritis without bleeding

== ENCOUNTER 2018-01-17 19:56 | Emergency (ER) | payer MEDICARE, MEDICAID ==
[2018-01-17 20:02] VITALS: BMI 30.7
[2018-01-17 20:07] VITALS: TEMP 98.1
--- NOTE | 2018-01-17 21:04 | ED PDOC ---
Arrival/HPI - General Chief Complaint: Abdominal Pain Time Seen by Provider: 01/17/18 21:01 Historian: Patient - History of Present Illness Narrative History of Present Illness (Text): 01/17/18 21:01 A 77 year old female, whose past medical history includes triple bypass surgery (10 years ago), hypertension, and hyperlipedemia, presents to the emergency department for abdominal pain x 1 hour. Patient stated upon arrival to ED pain has improved after passing gas. Currently, patient stated she is asymptomatic. Denies nausea, vomiting, epigastric pain, sob, cp, palpitation, fever, trauma, diarrhea, constipation, rectal bleeding, dizziness, diplopia, dysarthria, gonzalez, or abnormal gait. Time/Duration: Other (see hpi) Quality: Aching Context: Home Past Medical History - Provider Review Nursing Documentation Reviewed: Yes - Infectious Disease Hx of Infectious Diseases: None - Cardiac Hx Pacemaker: No - Pulmonary Hx Respiratory Disorders: No - Neurological Hx Neurological Disorder: Yes Hx Dizziness: Yes - HEENT Hx HEENT Disorder: Yes Other/Comment: b/l eye sx - Renal Hx Renal Disorder: No - Endocrine/Metabolic Hx Endocrine Disorders: No - Hematological/Oncological Hx Blood Disorders: No - Integumentary Hx Dermatological Disorder: No - Musculoskeletal/Rheumatological Hx Musculoskeletal Disorders: Yes Hx Falls: No - Gastrointestinal Hx Gastrointestinal Disorders: No - Genitourinary/Gynecological Hx Genitourinary Disorders: No - Psychiatric Hx Psychophysiologic Disorder: Yes Hx Anxiety: Yes Hx Panic Disorder: Yes ("once in a while") Hx Substance Use: No - Surgical History Other/Comment: triple bypass. b/l carpal tunnel sx - Anesthesia Hx Anesthesia Reactions: No Hx Malignant Hyperthermia: No Family/Social History - Physician Review Nursing Documentation Reviewed: Yes Family/Social History: Other (noncontributory) Smoking Status: Never Smoked Hx Alcohol Use: No Hx Substance Use: No Allergies/Home Meds Allergies/Adverse Reactions: Allergies amlodipine [From Norvas] Adverse Reaction (Verified 01/17/18 20:02) NAUSEA HEART PALPITATIONS Home Medications: Home Meds Medication Instructions Recorded Confirmed ALPRAZolam [Xanax] 1 tab PO BID PRN 07/25/17 01/17/18 Aspirin [Aspirin EC] 1 tab PO DAILY 07/25/17 01/17/18 Esomeprazole Magnesium [Nexium] 1 tab PO DAILY 07/25/17 01/17/18 Meclizine [Meclizine*] 1 tab PO BID PRN 07/25/17 01/17/18 Valsartan/Hydrochlorothiazide 1 tab PO DAILY 07/25/17 01/17/18 [Valsartan-Hctz 320-12.5 mg Tab] Review of Systems - Review of Systems Constitutional: Normal. absent: Fatigue, Weight Change, Fevers, Night Sweats Eyes: Normal ENT: Normal Respiratory: Normal. absent: SOB Cardiovascular: Normal. absent: Chest Pain Gastrointestinal: Abdominal Pain, Other (abdominal pain has improved.). absent : Nausea, Vomiting Genitourinary Female: Normal Musculoskeletal: Normal Skin: Normal Neurological: Normal Endocrine: Normal Hemo/Lymphatic: Normal Psychiatric: Normal Physical Exam Vital Signs Temp Pulse Resp BP Pulse Ox 01/17/18 20:03 98.1 F 60 16 159/70 H 97 Temperature: Afebrile Blood Pressure: Normal Pulse: Regular Respiratory Rate: Normal Appearance: Positive for: Well-Appearing, Non-Toxic, Comfortable Pain Distress: None Mental Status: Positive for: Alert and Oriented X 3 - Systems Exam Head: Present: Atraumatic, Normocephalic Pupils: Present: PERRL Extroacular Muscles: Present: EOMI Conjunctiva: Present: Normal Mouth: Present: Moist Mucous Membranes Neck: Present: Normal Range of Motion Respiratory/Chest: Present: Clear to Auscultation, Good Air Exchange. No: Respiratory Distress, Accessory Muscle Use Cardiovascular: Present: Regular Rate and Rhythm, Normal S1, S2. No: Murmurs Abdomen: No: Tenderness, Distention, Peritoneal Signs, Rebound, Guarding Back: Present: Normal Inspection. No: CVA Tenderness Upper Extremity: Present: Normal Inspection, Normal ROM. No: Cyanosis, Edema Lower Extremity: Present: Normal Inspection, NORMAL PULSES, Normal ROM. No: Edema Neurological: Present: GCS=15, CN II-XII Intact, Speech Normal, Motor Func Grossly Intact, Normal Sensory Function, Normal Cerebellar Funct, Gait Normal Skin: Present: Warm, Dry, Normal Color. No: Rashes Psychiatric: Present: Alert, Oriented x 3, Normal Insight, Normal Concentration Medical Decision Making ED Course and Treatment: 01/17/18 23:19 Patient remained stable during the course of ED visit. CT scan was not changed from last. No obstruction. Patient continues to be asymptomatic, and denies abdominal pain. Abdomen is soft , nt/nd. Patient tolerated po juice. Patient has a normal gait, speech. No neuro focval deficits. Lungs CTA b/l, denies cp , or sob. Patient was recommended to take ABX for cystitis. To return to ED if new symptoms develop. Re-evaluation Time: 23:21 Reassessment Condition: Re-examined, Improved - Lab Interpretations Lab Results: 01/17/18 21:00 01/17/18 21:00 Lab Results 01/17/18 21:13: Urine Color Yellow, Urine Appearance Clear, Urine pH 6.0, Ur Specific [place] 1.020, Urine Protein Trace H, Urine Glucose (UA) Negative, Urine Ketones Negative, Urine Blood Small H, Urine Nitrate Negative, Urine Bilirubin Negative, Urine Urobilinogen 0.2, Ur Leukocyte Esterase Large H, Urine RBC 0 - 2, Urine WBC 2 - 5, Ur Epithelial Cells 1 - 3, Urine Bacteria Few 01/17/18 21:00: Sodium 141, Potassium 4.7, Chloride 102, Carbon Dioxide 25, Anion Gap 18, BUN 15, Creatinine 0.9, Est GFR ( Amer) > 60, Est GFR (Non- Af Amer) > 60, Random Glucose 134 H, Calcium 10.3, Total Bilirubin 0.4, AST 31, ALT 34, Alkaline Phosphatase 80, Total Protein 8.3, Albumin 4.6, Globulin 3.6, Albumin/Globulin Ratio 1.3, Lipase 305 H 01/17/18 21:00: WBC 9.6 D, RBC 4.18, Hgb 12.6, Hct 36.9, MCV 88.3, MCH 30.1, MCHC 34.1, RDW 12.2, Plt Count 174, MPV 10.7, Gran % 80.5 H, Lymph % (Auto) 14.0 L, [place] % (Auto) 3.8, Eos % (Auto) 1.6, Baso % (Auto) 0.1, Gran # 7.74 H, Lymph # (Auto) 1.3, [place] # (Auto) 0.4, Eos # (Auto) 0.2, Baso # (Auto) 0.01 I have reviewed the lab results: Yes Interpretation: No clinic. lab abnormalty - RAD Interpretation Narrative RAD Interpretations (Text): 01/17/18 23:10 FINDINGS: The liver, spleen, and pancreas appear grossly normal on this non-contrast study. There are bilateral hypoattenuating renal lesions that are better delineated on prior contrast study. There is suggestion of a few tiny gallstones. No pericholecystic inflammation. Again seen is a hiatal hernia. Again seen is an upper anterior abdominal wall fat hernia extending beneath the sternal xiphoid process, however the hernia now contains a loop of small bowel. There is no caliber change to suggest the hernia is obstructing. There is no thickening of the herniated bowel loops or stranding in the surrounding fat to suggest incarceration/strangulation. There is wall thickening within the transverse colon images 30 through 45. The differential would include infectious/inflammatory process versus neoplasm. This area is normal on study performed one month prior favoring the former. Followup is recommended to ensure resolution. A normal appendix is identified series 3 images 70-82. IMPRESSION: Previously seen anterior abdominal wall fat hernia now contains a loop of small bowel without evidence of obstruction, strangulation, or incarceration. Focal wall thickening distal transverse colon as discussed above. Radiology Orders: 01/17/18 21:26 ABD & PELVIS W/O PO OR IV CONT [CT] Stat - Medication Orders Current Medication Orders: Discontinued Medications Cephalexin Monohydrate (Keflex) 500 mg PO STAT STA PRN Reason: Protocol Stop: 01/17/18 23:11 Disposition/Present on Arrival - Present on Arrival Any Indicators Present on Arrival: No History of DVT/PE: No History of Uncontrolled Diabetes: No Urinary Catheter: No History of Decub. Ulcer: No History Surgical Site Infection Following: None - Disposition Have Diagnosis and Disposition been Completed?: Yes Diagnosis: Nonspecific abdominal pain, Acute cystitis Disposition: HOME/ ROUTINE Disposition Time: 23:23 Patient Plan: Discharge Condition: IMPROVED Discharge Instructions (ExitCare): Abdominal Hernia (DC) Additional Instructions: Call private doctor for revaluation in 1-2 days. Take medication as instructed. return to emergency if symptoms worsen. Prescriptions: Cephalexin [Keflex] 500 mg PO BID #14 capsule Referrals: Anika Duvall MD [Primary Care Provider] - Follow up with primary Forms: [employer] ([place])
[2018-01-17 21:23] LABS: ALB/GLOB RATIO 1.3 (1.1-1.8); ALBUMIN 4.6 g/dL (3.0-4.8); ALT/SGPT 34 U/L (7-56); AST/SGOT 31 U/L (14-36); BLOOD UREA NITROGEN 15 mg/dL (7-21); CALCIUM 10.3 mg/dL (8.4-10.5); GFR AFRICAN-AMERICAN > 60; GFR NON-AFRICAN AMERICAN > 60; LIPASE 305 U/L (23-300)
[2018-01-17 21:24] LABS: URINE BILIRUBIN NEGATIVE (NEGATIVE); URINE BLOOD SMALL (NEGATIVE); URINE GLUCOSE (UA) NEGATIVE (NEGATIVE); URINE LEUKOCYTE ESTERASE LARGE Leu/uL (NEGATIVE); URINE PROTEIN TRACE mg/dL (<30 mg/dL); URINE UROBILINOGEN 0.2 E.U./dL (<1 E.U./dL)
[2018-01-17 21:25] LABS: URINE APPEARANCE CLEAR (CLEAR); URINE COLOR YELLOW (YELLOW)
[2018-01-17 21:25] LABS: BASO # 0.01 K/mm3 (0.0-2.0); BASO % 0.1 % (0.0-3.0); EOS # 0.2 (0.0-0.7); EOS % 1.6 % (1.5-5.0); GRAN # 7.74 (1.4-6.5); GRAN % 80.5 % (50.0-68.0); HEMOGLOBIN 12.6 g/dL (12.0-16.0); LYMPH # 1.3 (1.2-3.4); MEAN CELL VOLUME 88.3 fl (80.0-105.0); MEAN CORPUSCULAR HEMOGLOBIN 30.1 pg (25.0-35.0); MEAN CORPUSCULAR HGB CONC 34.1 g/dl (31.0-37.0); MEAN PLATELET VOLUME 10.7 fl (7.0-11.0); MONO # 0.4 (0.1-0.6); MONO % 3.8 % (1.0-6.0); RBC 4.18 10^6/uL (3.5-6.1); RED CELL DISTRIBUTION WIDTH 12.2 % (11.5-14.5); WHITE BLOOD COUNT 9.6 10^3/ul (4.5-11.0)
[2018-01-17 21:41] LABS: URINE BACTERIA FEW (NEG); URINE RBC 0 - 2 /hpf (0-2)
--- NOTE | 2018-01-17 23:01 | CT ---
EXAM: CT Abdomen and Pelvis Without Intravenous Contrast EXAM DATE/TIME: 01/17/2018 9:26 PM CLINICAL HISTORY: 77 years old, female; Pain; Abdominal pain; Acute; Additional info: Abdominal pain R/O obstruction TECHNIQUE: Axial computed tomography images of the abdomen and pelvis without intravenous contrast. All CT scans at this facility use one or more dose reduction techniques, viz.: automated exposure control; ma/kV adjustment per patient size (including targeted exams where dose is matched to indication; i.e. head); or iterative reconstruction technique. Coronal and sagittal reformatted images were created and reviewed. COMPARISON: CT - ABD PELVIS PO IV CONTRAST 2017-12-21 10:04 FINDINGS: The liver, spleen, and pancreas appear grossly normal on this non-contrast study. There are bilateral hypoattenuating renal lesions that are better delineated on prior contrast study. There is suggestion of a few tiny gallstones. No pericholecystic inflammation. Again seen is a hiatal hernia. Again seen is an upper anterior abdominal wall fat hernia extending beneath the sternal xiphoid process, however the hernia now contains a loop of small bowel. There is no caliber change to suggest the hernia is obstructing. There is no thickening of the herniated bowel loops or stranding in the surrounding fat to suggest incarceration/strangulation. There is wall thickening within the transverse colon images 30 through 45. The differential would include infectious/inflammatory process versus neoplasm. This area is normal on study performed one month prior favoring the former. Followup is recommended to ensure resolution. A normal appendix is identified series 3 images 70-82. IMPRESSION: Previously seen anterior abdominal wall fat hernia now contains a loop of small bowel without evidence of obstruction, strangulation, or incarceration. Focal wall thickening distal transverse colon as discussed above.
[2018-01-18 02:03] VITALS: BP 155/74; PULSE 63; RESP 18; O2SAT 98
== END 2018-01-17 23:27 | disposition home or self-care (01) ==
LOC: ED 19:56
DX: N30.00 Acute cystitis without hematuria (principal); R10.9 Unspecified abdominal pain; I10 Essential (primary) hypertension; E78.5 Hyperlipidemia, unspecified